=== PATIENT | male | born 1960 | race American Indian/Alaskan Native ===

== ENCOUNTER 2019-01-05 22:38 | Inpatient (IN) | payer BC ==
[2019-01-05] MEDS ORDERED: ASPIRIN 325 MG TAB PO ONE (23:11)
--- NOTE | 2019-01-05 23:41 | Emergency Department Report ---
ED Chest Pain HPI - General Chief Complaint: Chest Pain Stated Complaint: CP Time Seen by Provider: 01/05/19 23:34 Source: patient, EMS Mode of arrival: Stretcher Limitations: No Limitations - History of Present Illness Initial Comments: Patient is 58 years old male with history of hypertension, diabetes and congestive heart failure with ejection fracture off a percent. Patient presented to the ER via EMS complaining of left-sided chest pain for the last 3 days associated with shortness of breath. Patient stated that he is unable to sleep at night because of the shortness of breath. He also stated that if he walked for a very short distance and he will got significant shortness of breath. Patient denied any fever or chills. MD Complaint: chest pain -: days(s) (3) Pain Location: substernal Severity scale (0 -10): 0 - Related Data Allergies Allergy/AdvReac Type Severity Reaction Status Date / Time No Known Allergies Allergy Unverified 01/05/19 23:11 Heart Score - HEART Score History: Moderately suspicious EKG: Non-specific Age: 45-65 Risk factors: > 3 risk factors or hx of atherosclerotic disease Troponin: < normal limit HEART Score: 5 - Critical Actions Critical Actions: 4-6 pts:12-16.6% risk of adverse cardiac event. Should be admitted ED Review of Systems ROS: Stated complaint: CP Other details as noted in HPI Comment: All other systems reviewed and negative Constitutional: denies: chills, fever Respiratory: cough, orthopnea, shortness of breath, SOB with exertion, SOB at rest. denies: wheezing Cardiovascular: chest pain, palpitations Gastrointestinal: denies: abdominal pain, nausea, vomiting Musculoskeletal: denies: back pain Neurological: denies: headache, weakness, numbness, paresthesias, confusion ED Past Medical Hx - Past Medical History Previous Medical History?: Yes Hx Hypertension: Yes Hx Congestive Heart Failure: Yes Hx Diabetes: Yes - Surgical History Past Surgical History?: No - Social History Smoking Status: Former Smoker Substance Use Type: Prescribed ED Physical Exam - General Limitations: No Limitations General appearance: in distress (moderate respiratory distress) - Head Head exam: Present: atraumatic, normocephalic, normal inspection - Eye Eye exam: Present: normal appearance, PERRL - ENT ENT exam: Present: normal exam, normal orophraynx, mucous membranes moist - Neck Neck exam: Present: normal inspection, full ROM. Absent: tenderness, meningismus, lymphadenopathy, thyromegaly - Respiratory Respiratory exam: Present: rales - Cardiovascular Cardiovascular Exam: Present: tachycardia - GI/Abdominal GI/Abdominal exam: Present: soft, normal bowel sounds. Absent: distended, tenderness, guarding, rebound, rigid - Extremities Exam Extremities exam: Present: normal inspection, pedal edema - Back Exam Back exam: Present: normal inspection, full ROM. Absent: CVA tenderness (R), CVA tenderness (L), muscle spasm, paraspinal tenderness, vertebral tenderness - Neurological Exam Neurological exam: Present: alert, oriented X3, CN II-XII intact. Absent: motor sensory deficit - Psychiatric Psychiatric exam: Present: normal mood - Skin Skin exam: Present: warm ED Course Vital Signs 01/05/19 01/06/19 23:00 01:00 Temperature 99.5 F Pulse Rate 112 H 105 H Respiratory 16 26 H Rate Blood Pressure 103/57 Blood Pressure 101/61 [Left] O2 Sat by Pulse 96 89 Oximetry ED Medical Decision Making - Lab Data Result diagrams: 01/05/19 23:32 01/05/19 23:32 - EKG Data -: EKG Interpreted by Ar EKG shows normal: sinus rhythm Rate: tachycardia - EKG Data Interpretation: no acute changes - Radiology Data Radiology results: report reviewed - Medical Decision Making Patient is 58 years old male with history of hypertension, diabetes and congestive heart failure with ejection fracture off a percent. Patient presented to the ER via EMS complaining of left-sided chest pain for the last 3 days associated with shortness of breath. Patient stated that he is unable to sleep at night because of the shortness of breath. He also stated that if he walked for a very short distance and he will got significant shortness of breath. Patient denied any fever or chills. Labs reviewed and showed elevated white blood cells. Chest x-ray show right lower lobe infiltrate consistent with pneumonia. Patient received Zosyn. I discussed the patient is Dr. Milton, he agreed to admit the patient to medical service for further management. Critical care attestation.: If time is entered above; I have spent that time in minutes in the direct care o f this critically ill patient, excluding procedure time. ED Disposition Clinical Impression: Pneumonia, Chest pain Disposition: OP ADMIT IP TO THIS HOSP Is pt being admited?: Yes Condition: Stable Instructions: Bacterial Pneumonia (ED), Chest Pain (ED)
--- NOTE | 2019-01-05 23:43 | XRay Report ---
CHEST 1 VIEW INDICATION / CLINICAL INFORMATION: Chest Pain. COMPARISON: None available. FINDINGS: SUPPORT DEVICES: None. HEART / MEDIASTINUM: Mildly enlarged LUNGS / PLEURA: Right lower lung airspace pneumonia Signer Name: Hussain Chapman MD Signed: 01/05/2019 11:39 PM Workstation Name: [id number]
[2019-01-05] MEDS ORDERED: ONDANSETRON 4 MG/2 ML INJ ONE (23:45)
[2019-01-05] MEDS ORDERED: ONDANSETRON 4 MG/2 ML INJ IV ONE (23:45)
[2019-01-05 23:55] LABS: Basophils # (Auto) 0.1 K/mm3 (0.0-0.1); Basophils % (Auto) 0.6 % (0.0-1.8); Eosinophils % (Auto) 0.1 % (0.0-4.3); Hematocrit 34.5 % (35.5-45.6); Hemoglobin 11.3 gm/dl (11.8-15.2); Lymphocytes # (Auto) 1.1 K/mm3 (1.2-5.4); Lymphocytes % (Auto) 8.1 % (13.4-35.0); Mean Corpuscular HGB Conc 33 % (32-34); Mean Corpuscular Volume 78 fl (84-94); Monocytes # (Auto) 1.7 K/mm3 (0.0-0.8); Platelet Count 321 K/mm3 (140-440); Red Blood Count 4.45 M/mm3 (3.65-5.03); Red Cell Distribution Width 16.3 % (13.2-15.2)
[2019-01-06 00:45] LABS: BUN/Creatinine Ratio 24; Blood Urea Nitrogen 24 mg/dL (9-20); Calcium 8.8 mg/dL (8.4-10.2); Hemolysis Index 2
[2019-01-06] MEDS ORDERED: PIPERACILLIN/TAZOBACTAM 3.375 3.375 GM/50 ML BAG IV ONE (02:00)
[2019-01-06] MEDS ORDERED: ONDANSETRON 4 MG/2 ML INJ IV PRN (02:57)
[2019-01-06] MEDS ORDERED: MORPHINE 2 MG/1 ML INJ IV PRN (03:00)
[2019-01-06] MEDS ORDERED: LEVALBUTEROL 0.63 MG/3 ML NEBU IH PRN (03:06)
[2019-01-06] MEDS ORDERED: DEXTROSE 50% IN WATER (25GM) 50 ML SYRINGE IV PRN (03:08)
[2019-01-06] MEDS: HEPARIN 5,000 UNIT/1 ML VIAL SUB-Q SCH ×3 (03:35→22:05)
[2019-01-06] MEDS: INSULIN REGULAR, HUMAN 100 UNITS/1 ML SUB-Q SCH ×5 (04:08→20:07)
[2019-01-06] MEDS ORDERED: MORPHINE 2 MG/1 ML INJ ONE (04:24)
--- NOTE | 2019-01-06 04:41 | History and Physical Report ---
CHIEF COMPLAINT: Chest pain. OTHER COMPLAINT: Includes shortness of breath. HISTORY OF PRESENT ILLNESS: The patient is a 58-year-old male who said he has been having left-sided chest pain going on for about 3 days associated with shortness of breath, but there was no history of nausea or vomiting and no history of diaphoresis. Pain does not radiate. The patient said that whenever he walks for short distance, he becomes so short of breath and tired and has no history of fever or chills and no history of cough. PAST MEDICAL HISTORY: Pertinent for hypertension, congestive heart failure, diabetes mellitus. PAST SURGICAL HISTORY: Unremarkable. FAMILY HISTORY: Noncontributory. SOCIAL HISTORY: The patient is a former cigarette smoker. Does not smoke currently, does not drink alcohol and does not use illicit drugs. MEDICATIONS: The patient's home medication includes metformin 500 mg by mouth twice daily, torsemide or Demadex 20 mg by mouth daily, carvedilol 12.5 mg by mouth daily, fenofibrate 48 mg by mouth daily, fluticasone proprionate or Flovent Diskus 50 mcg by inhalation daily. The patient is also on lisinopril 2.5 mg by mouth daily, loratadine 10 mg by mouth daily, potassium bicarbonate 25 mEq by mouth daily. ALLERGIES: There are no known drug allergies. REVIEW OF SYSTEMS: CONSTITUTIONAL: There is no fever, no chills, no diaphoresis. HEENT: There is no headache or sore throat. CARDIOVASCULAR SYSTEM: Chest pain is present. No orthopnea. RESPIRATORY SYSTEM: Shortness of breath is present and also congestion is present. GASTROINTESTINAL SYSTEM: There is nausea. No vomiting, no abdominal pain, diarrhea or constipation. NEUROLOGICAL SYSTEM: There is no numbness, no dizziness, no altered mental status. MUSCULOSKELETAL SYSTEM: There is no joint pain but there is joint swelling in the ankles. DERMATOLOGICAL SYSTEM: There is no skin rash or itching. GENITOURINARY SYSTEM: There is no dysuria, hematuria, or flank pain. Rest of system review is normal. PHYSICAL EXAMINATION: GENERAL: At the time of exam, the patient was found to be alert, oriented x 3 and in mild distress due to shortness of breath. VITAL SIGNS: At the initial time of presentation showed temperature of 99.5 degrees Fahrenheit, pulse of 112, respirations 16, blood pressure 101/61, O2 sat of 96% on room air. HEENT: Showed pupils to be equal, round, reactive to light and accommodating. Extraocular muscles are intact. NECK: Supple with no JVD or carotid bruit. CARDIOVASCULAR SYSTEM: Showed normal first and second heart sounds with no gallops or murmurs. RESPIRATORY SYSTEM: Showed good air entry on both sides of the lungs with bibasilar rales and scattered crackles in the right lower lung field area. GASTROINTESTINAL SYSTEM: Show abdomen to be full, soft, nontender with no organomegaly or rigidity. NEUROLOGIC: Shows no focal deficit. MUSCULOSKELETAL: Shows swelling in the ankles and feet. DERMATOLOGICAL SYSTEM: Show no skin rash. GENITOURINARY SYSTEM: Show no costovertebral angle tenderness. PERTINENT LABORATORY AND IMAGING STUDIES: The patient had chest x-ray done. Chest x-ray shows right lower lung airspace pneumonia. Lab results, the patient's CBC show elevated white count of 13,200 with slightly low hemoglobin of 11,300 and low hematocrit of 34.5 and low MCV of 78 with CBC differential showing elevated monocyte count of 13% and high segmented neutrophil count of 78.2. The patient's coagulation studies show high D-dimer level of 947.7 with the patient's chemistry showing low chloride level of 97.3 with elevated BUN of 24 and high brain natriuretic peptide level of 6595 with unremarkable troponin level. DIAGNOSES: 1. Right lower lobe pneumonia. 2. Chest pain. 3. Congestive heart failure exacerbation. PLAN OF CARE: 1. The patient will be admitted to telemetry as inpatient. 2. The patient will have serial cardiac enzymes involving troponin, total CK, and CK-MB checked every 6 hours x 2 levels. 3. The patient will be n.p.o. and will have Lexiscan stress test done this morning. 4. The patient will have 2D echo, so we will have complete 2D echo done this morning to evaluate the patient's left ventricular function. 5. The patient will have Cardiology consult with Dr. Delroy Becerra because of chest pain and congestive heart failure exacerbation. 6. The patient will be on Accu-Chek q.4 hours followed by low-dose sliding scale using regular insulin coverage. 7. The patient will be on aspirin 325 mg by mouth daily and will be on Tylenol 650 mg by mouth every 4 hours for fever and headache. 8. The patient will be on daily aspirin 325 mg by mouth. 9. The patient will be on heparin 5000 units subcutaneous q.12 hours for DVT prophylaxis. 10. The patient will be on Xopenex nebulizer 0.63 mg every 6 hours as needed for shortness of breath. 11. The patient will be on nitro paste half inch to anterior chest wall q.i.d. 12. The patient will be on Nitrostat 0.4 mg every 5 minutes as needed for breakthrough chest pain. 13. The patient will be on IV morphine 2 mg every 3 hours as needed for pain and IV Zofran 4 mg every 8 hours as needed for nausea and vomiting. 14. The patient will be on IV Zosyn 3.375 grams q. 8 hours for treatment of pneumonia. 15. The patient will be on oxygen by nasal cannula at 2 liters per minute. 16. The patient will be on his home medication as shown in the medication reconciliation section. JOB# [id number] OCN/NTS
[2019-01-06] MEDS ORDERED: LORazepam 2 MG/ML VIAL IV ONE (04:51)
[2019-01-06] MEDS: NITROGLYCERIN 2% OINT 1 GM TP SCH ×4 (05:23→19:35)
[2019-01-06] MEDS: PIPERACILLIN/TAZOBACTAM 3.375 3.375 GM/50 ML BAG IV SCH ×2 (05:24→15:30)
[2019-01-06] MEDS ORDERED: REGADENOSON 0.4 MG/5 ML INJ IV ONE ×2 (08:16→08:24)
[2019-01-06 08:50] LABS: Creatine Kinase MB < 1.0 ng/mL (0.0-4.0)
[2019-01-06] MEDS ORDERED: FLUTICASONE PROPIONATE 50 MCG IH SCH (10:00)
[2019-01-06] MEDS ORDERED: FUROSEMIDE 40 MG/4 ML INJ IV SCH (10:00)
--- NOTE | 2019-01-06 10:24 | Event Note ---
Date: 01/06/19 This is a follow-up from an admission earlier this morning. Patient seen and examined. We will continue the plan as outlined in H&P including IV antibiotics and follow-up echocardiogram and stress tests. Time = 25 minutes with greater than 50% spent in coordination of care and counseling.
--- NOTE | 2019-01-06 14:13 | Event Note ---
Date: 01/06/19 Detailed cardiology consultation dictated. S/p lexiscan MPI stress test this AM which showed mild inferolateral ischemia, EF 17%. Await echo. Cont lopressor, lisinopril, increase IV lasix to BID dosing. Consider coronary angiography for definitive diagnosis once medically stabilized. En LAUREANO NP / DR. CEDRIC TOMAS
--- NOTE | 2019-01-06 15:30 | Treadmill Report ---
NUCLEAR STRESS REPORT The patient was brought to the Cardiology lab and a nuclear stress test is performed with the administration of Lexiscan initially. The patient tolerated Lexiscan administration well. No significant ischemic changes or complex arrhythmias were noted. Post-stress nuclear images reveal markedly dilated left ventricle with severe global hypokinesis and thinning of the left ventricle. Ejection fraction is calculated to be 17%. Mild inferolateral reversibility is present. IMPRESSION: 1. Dilated left ventricle with severe global systolic dysfunction with a calculated ejection fraction of 17%. 2. Mild inferolateral reversibility to suggest ischemia. 3. Suggest clinical correlation. JOB# [id number] MARQUIS/NTS
[2019-01-06] MEDS: LISINOPRIL 5 MG TAB PO SCH (15:37)
[2019-01-06] MEDS: FENOFIBRATE 48 MG TAB PO SCH (15:37)
[2019-01-06] MEDS: K-LYTE 25 MEQ TABLET EFF PO SCH (15:37)
[2019-01-06] MEDS: CARVEDILOL 12.5 MG TAB PO SCH (15:37)
[2019-01-06] MEDS: LORATADINE 10 MG TAB PO SCH (15:38)
[2019-01-06] MEDS: ASPIRIN 325 MG TAB PO SCH (15:38)
[2019-01-06] MEDS: FUROSEMIDE 40 MG/4 ML INJ IV SCH (19:39)
--- NOTE | 2019-01-06 23:25 | Consultation ---
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 The pains are described as sharp pains and he also complains about exertional dyspnea. The patient is known to have had hypertension for about 6-7 years. He has been having intermittent chest pains for about 6-7 years, but mostly it is a sharp pain and sometimes related to activity. He apparently had a cardiac catheterization about 8 years ago and was normal. Last stress test was 4 years ago and was apparently negative. He is also complaining about fatigue and his effort tolerance is markedly reduced. Walking very short distance gives some shortness of breath. No prior myocardial infarction. Diagnosed to have hypertension for about 5-6 years ago, diabetes and hyperlipidemia for about 2-3 years. Questionable history of congestive heart failure. REVIEW OF SYSTEMS: HEAD, EYES, EARS, NOSE, THROAT: No symptoms. ENDOCRINE: History of diabetes. GASTROINTESTINAL: No abdominal pain, nausea or vomiting. Bowel habits have been regular. GENITOURINARY: No symptoms. LOCOMOTOR: No symptoms. PERSONAL HISTORY: Nonsmoker, nonalcoholic. PHYSICAL EXAMINATION: GENERAL: Adult gentleman, well built, well nourished, in no acute distress at this time. VITAL SIGNS: Blood pressure 103/70, pulse 100, respirations 18. HEAD, EYES, EARS, NOSE AND THROAT: Unremarkable. NECK: Supple. No thyromegaly. Both carotids are palpable and equal. Neck veins are flat. CHEST: Symmetrical. LUNGS: Essentially clear. HEART: S1 and S2 are heard well. No S3. No significant murmurs are appreciated. ABDOMEN: Soft, nontender, no hepatosplenomegaly. EXTREMITIES: No significant edema or calf tenderness. LABORATORY DATA: EKG shows sinus rhythm, left axis deviation, intraventricular conduction delay, possible septal infarct. Rhythm strips show a short run of ventricular tachycardia. LABORATORY DATA: WBC 13.3, hemoglobin 11.3, hematocrit 34.5. Sodium 137, potassium 4.4, BUN 24, creatinine 1, blood sugar 154. Troponin x 3 negative. BNP 6595. IMPRESSION: 1. Chest pain, etiology uncertain, rule out ischemic etiology. 2. Short run of nonsustained ventricular tachycardia. 3. Hypertension. 4. Diabetes. 5. History of congestive heart failure. 6. Leukocytosis. The patient is seen for cardiac evaluation. Chest pain itself is atypical; however, we will review the nuclear stress test and echocardiogram and the patient will be monitored closely. Thank you for allowing me to participate in the care of this gentleman. JOB# [id number] KB/NTS
[2019-01-07] MEDS: INSULIN REGULAR, HUMAN 100 UNITS/1 ML SUB-Q SCH ×7 (00:10→22:18)
[2019-01-07] MEDS: FUROSEMIDE 40 MG/4 ML INJ IV SCH ×3 (06:18→19:11)
[2019-01-07] MEDS: NITROGLYCERIN 2% OINT 1 GM TP SCH ×4 (06:19→19:12)
[2019-01-07] MEDS: PIPERACILLIN/TAZOBACTAM 3.375 3.375 GM/50 ML BAG IV SCH ×3 (06:19→22:19)
[2019-01-07 07:41] LABS: BUN/Creatinine Ratio 26; Blood Urea Nitrogen 23 mg/dL (9-20); Calcium 8.9 mg/dL (8.4-10.2); Hemolysis Index 4
[2019-01-07] MEDS ORDERED: BUDESONIDE 0.25 MG/2 ML NEBU IH SCH (08:00)
[2019-01-07] MEDS: ASPIRIN 325 MG TAB PO SCH (10:16)
[2019-01-07] MEDS: K-LYTE 25 MEQ TABLET EFF PO SCH (10:16)
[2019-01-07] MEDS: LORATADINE 10 MG TAB PO SCH (10:16)
[2019-01-07] MEDS: FENOFIBRATE 48 MG TAB PO SCH (10:16)
[2019-01-07] MEDS: LISINOPRIL 5 MG TAB PO SCH (10:18)
[2019-01-07] MEDS: CARVEDILOL 12.5 MG TAB PO SCH (10:18)
[2019-01-07] MEDS: HEPARIN 5,000 UNIT/1 ML VIAL SUB-Q SCH ×2 (10:19→22:18)
--- NOTE | 2019-01-07 12:38 | Progress Note ---
Assessment and Plan Assessment and plan: Chest pain Stress test abnormal For cardiac cath when stable Acute on chronic systolic CHF lasix iv Beta blockers cardiology following Diabetes mellitus type 2 Accucheck qac and hs NSVT Full code status Hospitalist Physical - Physical exam Narrative exam: Gen: Not in acute distress, lying in bed,obese HEENT: Normocephalic, atraumatic Neck: supple, no JVD Heart: S1 and S2 reg, no murmurs, rubs or gallop Lungs: Bilateral basal crackles, no rhonchi, no wheeze Abd: soft, non tender, non distended, normal BS, Ext: No edema, no clubbing, no cyanosis Neuro: Awake, alert, oriented X 3, no focal neurological signs - Constitutional Vitals: Temp Pulse Resp BP Pulse Ox 98.3 F 97 H 19 91/61 94 01/07/19 09:08 01/07/19 12:30 01/07/19 10:00 01/07/19 12:30 01/07/19 12:30 Results - Labs CBC & Chem 7: 01/05/19 23:32 01/08/19 05:20 Labs: Laboratory Last Values WBC 13.2 K/mm3 (4.5-11.0) H 01/05/19 23:32 RBC 4.45 M/mm3 (3.65-5.03) 01/05/19 23:32 Hgb 11.3 gm/dl (11.8-15.2) L 01/05/19 23:32 Hct 34.5 % (35.5-45.6) L 01/05/19 23:32 MCV 78 fl (84-94) L 01/05/19 23:32 MCH 26 pg (28-32) L 01/05/19 23:32 MCHC 33 % (32-34) 01/05/19 23:32 RDW 16.3 % (13.2-15.2) H 01/05/19 23:32 Plt Count 321 K/mm3 (140-440) 01/05/19 23:32 Lymph % (Auto) 8.1 % (13.4-35.0) L 01/05/19 23:32 [place] % (Auto) 13.0 % (0.0-7.3) H 01/05/19 23:32 Eos % (Auto) 0.1 % (0.0-4.3) 01/05/19 23:32 Baso % (Auto) 0.6 % (0.0-1.8) 01/05/19 23:32 Lymph # 1.1 K/mm3 (1.2-5.4) L 01/05/19 23:32 [place] # 1.7 K/mm3 (0.0-0.8) H 01/05/19 23:32 Eos # 0.0 K/mm3 (0.0-0.4) 01/05/19 23:32 Baso # 0.1 K/mm3 (0.0-0.1) 01/05/19 23:32 Seg Neutrophils % 78.2 % (40.0-70.0) H 01/05/19 23:32 Seg Neutrophils # 10.4 K/mm3 (1.8-7.7) H 01/05/19 23:32 D-Dimer 947.79 ng/mlDDU (0-234) H 01/05/19 23:32 Sodium 137 mmol/L (137-145) 01/07/19 06:49 Potassium 4.4 mmol/L (3.6-5.0) 01/07/19 06:49 Chloride 96.3 mmol/L (98-107) L 01/07/19 06:49 Carbon Dioxide 24 mmol/L (22-30) 01/07/19 06:49 Anion Gap 21 mmol/L 01/07/19 06:49 BUN 23 mg/dL (9-20) H 01/07/19 06:49 Creatinine 0.9 mg/dL (0.8-1.5) 01/07/19 06:49 Estimated GFR > 60 ml/min 01/07/19 06:49 BUN/Creatinine Ratio 26 % 01/07/19 06:49 Glucose 141 mg/dL (75-100) H 01/07/19 06:49 POC Glucose 154 (70-105) H 01/07/19 09:20 Calcium 8.9 mg/dL (8.4-10.2) 01/07/19 06:49 Total Creatine Kinase 239 units/L (55-170) H 01/06/19 15:37 CK-MB (CK-2) 1.0 ng/mL (0.0-4.0) 01/06/19 15:37 CK-MB (CK-2) Rel Index 0.4 (0-4) 01/06/19 15:37 Troponin T 0.015 ng/mL (0.00-0.029) 01/06/19 15:37 NT-Pro-B Natriuret Pep 6595 pg/mL (0-900) H 01/05/19 23:32 Active Medications - Current Medications Current Medications: Generic Name Dose Route Start Last Admin Trade Name Freq PRN Reason Stop Dose Admin Acetaminophen 650 mg 01/06/19 02:56 Tylenol PO Q4H PRN Fever >101 Aspirin 325 mg 01/06/19 10:00 01/07/19 10:16 Aspirin PO 325 mg QDAY SHERITA Administration Budesonide 0.25 mg 01/07/19 08:00 01/07/19 09:15 Pulmicort IH 0.25 mg Q12HRT SHERITA Administration Carvedilol 12.5 mg 01/06/19 10:00 01/07/19 10:18 Coreg PO Not Given DAILY SHERITA Dextrose 0 ml 01/06/19 03:08 D50w (25gm) Syringe IV Q30MIN PRN Hypoglycemia Fenofibrate 48 mg 01/06/19 10:00 01/07/19 10:16 Tricor PO 48 mg DAILY SHERITA Administration Furosemide 40 mg 01/06/19 18:00 01/07/19 06:18 Lasix IV 40 mg 0600,1800 SHERITA Administration Heparin Sodium (Porcine) 5,000 unit 01/06/19 03:00 01/07/19 10:19 Heparin SUB-Q 5,000 unit Q12HR SHERITA Administration Piperacillin Sod/Tazobactam Sod 3.375 gm in 50 mls @ 100 mls/hr 01/07/19 06:00 01/07/19 06:19 Zosyn/Ns 3.375gm/50ml IV 01/10/19 05:59 100 mls/hr Q8HR SHERITA Administration Insulin Human Regular 0 units 01/06/19 04:00 01/07/19 08:00 Humulin R SUB-Q Not Given Q4H SHERITA Protocol Levalbuterol HCl 0.63 mg 01/06/19 03:06 01/07/19 09:14 Xopenex IH 0.63 mg Q6HRT PRN Administration Shortness Of Breath Lisinopril 2.5 mg 01/06/19 10:00 01/07/19 10:18 Zestril PO Not Given DAILY SHERITA Loratadine 10 mg 01/06/19 10:00 01/07/19 10:16 Claritin PO 10 mg DAILY SHERITA Administration Morphine Sulfate 2 mg 01/06/19 03:00 Morphine IV Q3H PRN Pain, Moderate (4-6) Nitroglycerin 0.5 inch 01/06/19 06:00 01/07/19 10:18 Nitro-Bid 2% TP Not Given QIDNTG [facility] Protocol Ondansetron HCl 4 mg 01/06/19 02:57 Zofran IV Q8H PRN Nausea And Vomiting Potassium Bicarbonate 20 meq 01/06/19 10:00 01/07/19 10:16 Klor-Con PO 20 meq QDAY SHERITA Administration
--- NOTE | 2019-01-07 14:55 | Progress Note ---
Assessment and Plan S/p lexiscan MPI stress test yesterday which showed mild inferolateral ischemia, EF 17%. Echo reviewed - EF 10-15%, LV, LA, RV severely dilated, RV systolic function severely reduced, mild to mod MR and TR, pulm HTN with RVSP 79mmHg. Cont GDMT and IV diuretics. Consider coronary angiography for definitive diagnosis once medically stabilized - likely or Sunday. Pt reports h/o cardiomyopathy and HF for approx the past 6-8 years. Cardiac defibrillator recommended (LifeVest and/or AICD) in setting of severe CMP and NSVT. He states that Dr. Reeder has also made this recommendation and he has chronically declined LifeVest and/or AICD. The patient has been seen in conjunction with Dr. CEDRIC Becerra who agrees with the assessment and plan of care. - Patient Problems (1) Acute HFrEF (heart failure with reduced ejection fraction) Current Visit: Yes Status: Acute (2) Dilated cardiomyopathy Current Visit: Yes Status: Chronic (3) HTN (hypertension) Current Visit: Yes Status: Chronic (4) Diabetes Current Visit: Yes Status: Chronic (5) NSVT (nonsustained ventricular tachycardia) Current Visit: Yes Status: Acute (6) History of ETOH abuse Current Visit: Yes Status: Chronic (7) Abnormal stress test Current Visit: Yes Status: Acute (8) Pulmonary HTN Current Visit: Yes Status: Chronic Subjective Date of service: 01/07/19 Principal diagnosis: HF Interval history: pt sitting up in chair, states SOB improving, BLE persists. in SR on tele. Objective Last Vital Signs Temp 98.3 F 01/07/19 09:08 Pulse 97 H 01/07/19 12:30 Resp 19 01/07/19 10:00 BP 91/61 01/07/19 12:30 Pulse Ox 94 01/07/19 12:30 - Physical Examination General: No Apparent Distress HEENT: Positive: PERRL, Normocephaly, Mucus Membranes Moist Neck: Positive: neck supple, trachea midline Cardiac: Positive: Reg Rate and Rhythm, S1/S2 Lungs: Positive: Rales (bibasilar) Neuro: Positive: Grossly Intact Abdomen: Negative: Tender Skin: Negative: Rash Musculoskeletal: No Pain Extremities: Present: +3 Edema (BLE) - Labs and Meds Cardiac Enzymes 01/06/19 Range/Units 15:37 CK-MB (CK-2) 1.0 (0.0-4.0) ng/mL Comprehensive Metabolic Panel 01/07/19 Range/Units 06:49 Sodium 137 (137-145) mmol/L Potassium 4.4 (3.6-5.0) mmol/L Chloride 96.3 L (98-107) mmol/L Carbon Dioxide 24 (22-30) mmol/L BUN 23 H (9-20) mg/dL Creatinine 0.9 (0.8-1.5) mg/dL Glucose 141 H (75-100) mg/dL Calcium 8.9 (8.4-10.2) mg/dL - Imaging and Cardiology EKG: report reviewed, image reviewed Pharmacologic stress test: report reviewed Echo: report reviewed - Telemetry EKG Rhythm: Sinus Rhythm
[2019-01-07] MEDS: BUDESONIDE 0.25 MG/2 ML NEBU IH SCH (20:08)
[2019-01-07] MEDS ORDERED: SODIUM CHLORIDE 0.9% 500 ML 500 ML IV ONE (20:22)
[2019-01-07] MEDS ORDERED: CARVEDILOL 6.25 MG TAB PO SCH (22:00)
[2019-01-08] MEDS: BENZONATATE 100 MG CAP PO SCH ×4 (00:45→21:48)
[2019-01-08] MEDS: FUROSEMIDE 40 MG/4 ML INJ IV SCH (05:24)
[2019-01-08] MEDS: PIPERACILLIN/TAZOBACTAM 3.375 3.375 GM/50 ML BAG IV SCH ×3 (05:25→21:52)
[2019-01-08] MEDS: NITROGLYCERIN 2% OINT 1 GM TP SCH ×3 (05:26→14:13)
[2019-01-08 05:57] LABS: BUN/Creatinine Ratio 22; Blood Urea Nitrogen 20 mg/dL (9-20); Hemolysis Index 0
[2019-01-08] MEDS: INSULIN REGULAR, HUMAN 100 UNITS/1 ML SUB-Q SCH ×4 (07:30→22:10)
[2019-01-08] MEDS: BUDESONIDE 0.25 MG/2 ML NEBU IH SCH ×2 (08:25→20:42)
[2019-01-08] MEDS: LORATADINE 10 MG TAB PO SCH (10:23)
[2019-01-08] MEDS: ASPIRIN 325 MG TAB PO SCH (10:24)
[2019-01-08] MEDS: FENOFIBRATE 48 MG TAB PO SCH (10:24)
[2019-01-08] MEDS: LISINOPRIL 5 MG TAB PO SCH (10:25)
[2019-01-08] MEDS: HEPARIN 5,000 UNIT/1 ML VIAL SUB-Q SCH ×2 (10:30→21:48)
[2019-01-08] MEDS ORDERED: K-LYTE 25 MEQ TABLET EFF PO SCH (11:30)
[2019-01-08] MEDS: CARVEDILOL 3.125 MG TAB PO SCH ×2 (12:26→21:52)
[2019-01-08] MEDS: K-LYTE 25 MEQ TABLET EFF PO SCH (12:34)
--- NOTE | 2019-01-08 15:10 | Progress Note ---
Assessment and Plan Cont GDMT as tolerated. Pt reports low UOP and BLE edema persists, will convert IV lasix to IV bumex BID. F/u BMP in AM. Consider coronary angiography for definitive diagnosis once medically stabilized - likely Sunday. Pt reports h/o cardiomyopathy and HF for approx the past 6-8 years. Cardiac defibrillator recommended (LifeVest and/or AICD) in setting of severe CMP and NSVT. He states that Dr. Reeder has also made this recommendation and he has chronically declined LifeVest and/or AICD. The patient has been seen in conjunction with Dr. CEDRIC Becerra who agrees with the assessment and plan of care. - Patient Problems (1) Acute HFrEF (heart failure with reduced ejection fraction) Current Visit: Yes Status: Acute (2) Dilated cardiomyopathy Current Visit: Yes Status: Chronic (3) HTN (hypertension) Current Visit: Yes Status: Chronic (4) Diabetes Current Visit: Yes Status: Chronic (5) NSVT (nonsustained ventricular tachycardia) Current Visit: Yes Status: Acute (6) History of ETOH abuse Current Visit: Yes Status: Chronic (7) Abnormal stress test Current Visit: Yes Status: Acute (8) Pulmonary HTN Current Visit: Yes Status: Chronic Subjective Date of service: 01/08/19 Principal diagnosis: HF Interval history: pt sitting up in chair, states SOB improving, BLE persists. in SR on tele with 16 beat run NSVT noted overnight, pt asymptomatic. Objective Last Vital Signs Temp 98.0 F 01/08/19 03:57 Pulse 98 H 01/08/19 14:13 Resp 20 01/08/19 10:18 BP 92/59 01/08/19 14:13 Pulse Ox 96 01/08/19 10:18 - Physical Examination General: No Apparent Distress HEENT: Positive: PERRL, Normocephaly, Mucus Membranes Moist Neck: Positive: neck supple, trachea midline Cardiac: Positive: Reg Rate and Rhythm, S1/S2 Lungs: Positive: Decreased Breath Sounds Neuro: Positive: Grossly Intact Abdomen: Negative: Tender Skin: Negative: Rash Musculoskeletal: No Pain Extremities: Present: +3 Edema (BLE) - Labs and Meds Comprehensive Metabolic Panel 01/08/19 Range/Units 05:20 Sodium 140 (137-145) mmol/L Potassium 4.5 (3.6-5.0) mmol/L Chloride 98.7 (98-107) mmol/L Carbon Dioxide 29 (22-30) mmol/L BUN 20 (9-20) mg/dL Creatinine 0.9 (0.8-1.5) mg/dL Glucose 121 H (75-100) mg/dL Calcium 9.0 (8.4-10.2) mg/dL - Imaging and Cardiology EKG: report reviewed, image reviewed Echo: report reviewed
--- NOTE | 2019-01-08 21:24 | XRay Report ---
CHEST 1 VIEW INDICATION: pneumonia versus CHF. COMPARISON: 01/05/2019 FINDINGS: SUPPORT DEVICES: None. HEART / MEDIASTINUM: Mild cardiac enlargement. LUNGS / PLEURA: Airspace changes present both lower lobes No pneumothorax. ADDITIONAL FINDINGS: IMPRESSION: 1. Airspace changes both lower lobes right greater than left, pneumonia is a concern Signer Name: Jaime Bashir MD Signed: 01/08/2019 9:19 PM Workstation Name: [id number]
[2019-01-08] MEDS: BUMETANIDE 1 MG/4 ML INJ IV SCH (21:48)
--- NOTE | 2019-01-08 22:34 | Progress Note ---
Assessment and Plan Assessment and plan: Chest pain Stress test abnormal For cardiac cath when stable Acute on chronic systolic CHF Started on Bumex iv Coreg cardiology following Diabetes mellitus type 2 Accucheck qac and hs NSVT Full code status History Interval history: No more chest pain less shortness of breath legs still swollen Hospitalist Physical - Physical exam Narrative exam: Gen: Not in acute distress, lying in bed,obese HEENT: Normocephalic, atraumatic Neck: supple, no JVD Heart: S1 and S2 reg, no murmurs, rubs or gallop Lungs: Bilateral basal crackles, no rhonchi, no wheeze Abd: soft, non tender, non distended, normal BS, Ext: Bilat lower ext edema, no clubbing, no cyanosis Neuro: Awake, alert, oriented X 3, no focal neurological signs - Constitutional Vitals: Temp Pulse Resp BP Pulse Ox 98.1 F 93 H 18 90/54 96 01/08/19 16:31 01/08/19 21:52 01/08/19 16:31 01/08/19 21:52 01/08/19 12:29 Results - Labs CBC & Chem 7: 01/05/19 23:32 01/08/19 05:20 Labs: Laboratory Last Values WBC 13.2 K/mm3 (4.5-11.0) H 01/05/19 23:32 RBC 4.45 M/mm3 (3.65-5.03) 01/05/19 23:32 Hgb 11.3 gm/dl (11.8-15.2) L 01/05/19 23:32 Hct 34.5 % (35.5-45.6) L 01/05/19 23:32 MCV 78 fl (84-94) L 01/05/19 23:32 MCH 26 pg (28-32) L 01/05/19 23:32 MCHC 33 % (32-34) 01/05/19 23:32 RDW 16.3 % (13.2-15.2) H 01/05/19 23:32 Plt Count 321 K/mm3 (140-440) 01/05/19 23:32 Lymph % (Auto) 8.1 % (13.4-35.0) L 01/05/19 23:32 [place] % (Auto) 13.0 % (0.0-7.3) H 01/05/19 23:32 Eos % (Auto) 0.1 % (0.0-4.3) 01/05/19 23:32 Baso % (Auto) 0.6 % (0.0-1.8) 01/05/19 23:32 Lymph # 1.1 K/mm3 (1.2-5.4) L 01/05/19 23:32 [place] # 1.7 K/mm3 (0.0-0.8) H 01/05/19 23:32 Eos # 0.0 K/mm3 (0.0-0.4) 01/05/19 23:32 Baso # 0.1 K/mm3 (0.0-0.1) 01/05/19 23:32 Seg Neutrophils % 78.2 % (40.0-70.0) H 01/05/19 23:32 Seg Neutrophils # 10.4 K/mm3 (1.8-7.7) H 01/05/19 23:32 D-Dimer 947.79 ng/mlDDU (0-234) H 01/05/19 23:32 Sodium 140 mmol/L (137-145) 01/08/19 05:20 Potassium 4.5 mmol/L (3.6-5.0) 01/08/19 05:20 Chloride 98.7 mmol/L (98-107) 01/08/19 05:20 Carbon Dioxide 29 mmol/L (22-30) 01/08/19 05:20 Anion Gap 17 mmol/L 01/08/19 05:20 BUN 20 mg/dL (9-20) 01/08/19 05:20 Creatinine 0.9 mg/dL (0.8-1.5) 01/08/19 05:20 Estimated GFR > 60 ml/min 01/08/19 05:20 BUN/Creatinine Ratio 22 % 01/08/19 05:20 Glucose 121 mg/dL (75-100) H 01/08/19 05:20 POC Glucose 153 (70-105) H 01/08/19 21:00 Calcium 9.0 mg/dL (8.4-10.2) 01/08/19 05:20 Total Creatine Kinase 239 units/L (55-170) H 01/06/19 15:37 CK-MB (CK-2) 1.0 ng/mL (0.0-4.0) 01/06/19 15:37 CK-MB (CK-2) Rel Index 0.4 (0-4) 01/06/19 15:37 Troponin T 0.015 ng/mL (0.00-0.029) 01/06/19 15:37 NT-Pro-B Natriuret Pep 6595 pg/mL (0-900) H 01/05/19 23:32 Active Medications - Current Medications Current Medications: Generic Name Dose Route Start Last Admin Trade Name Freq PRN Reason Stop Dose Admin Acetaminophen 650 mg 01/06/19 02:56 Tylenol PO Q4H PRN Fever >101 Aspirin 325 mg 01/06/19 10:00 01/08/19 10:24 Aspirin PO 325 mg QDAY SHERITA Administration Benzonatate 100 mg 01/08/19 01:00 01/08/19 21:48 Tessalon Perles PO 01/11/19 00:59 100 mg Q8HR SHERITA Administration Budesonide 0.5 mg 01/07/19 20:00 01/08/19 20:42 Pulmicort IH Not Given Q12HRT SHERITA Bumetanide 1 mg 01/08/19 18:00 01/08/19 21:48 Bumex IV Not Given BID@0600,1800 SHERITA Carvedilol 3.125 mg 01/08/19 11:00 01/08/19 21:52 Coreg PO Not Given BID SHERITA Dextrose 0 ml 01/06/19 03:08 D50w (25gm) Syringe IV Q30MIN PRN Hypoglycemia Fenofibrate 48 mg 01/06/19 10:00 01/08/19 10:24 Tricor PO 48 mg DAILY SHERITA Administration Heparin Sodium (Porcine) 5,000 unit 01/06/19 03:00 01/08/19 21:48 Heparin SUB-Q 5,000 unit Q12HR SHERITA Administration Piperacillin Sod/Tazobactam Sod 3.375 gm in 50 mls @ 100 mls/hr 01/07/19 06:00 01/08/19 21:52 Zosyn/Ns 3.375gm/50ml IV 01/10/19 05:59 100 mls/hr Q8HR SHERITA Administration Insulin Human Regular 0 units 01/07/19 22:00 01/08/19 22:10 Humulin R SUB-Q 1 units ACHS SHERITA Administration Protocol Levalbuterol HCl 0.63 mg 01/06/19 03:06 01/07/19 09:14 Xopenex IH 0.63 mg Q6HRT PRN Administration Shortness Of Breath Lisinopril 2.5 mg 01/06/19 10:00 01/08/19 10:25 Zestril PO Not Given DAILY SHERITA Loratadine 10 mg 01/06/19 10:00 01/08/19 10:23 Claritin PO 10 mg DAILY SHERITA Administration Morphine Sulfate 2 mg 01/06/19 03:00 Morphine IV Q3H PRN Pain, Moderate (4-6) Ondansetron HCl 4 mg 01/06/19 02:57 Zofran IV Q8H PRN Nausea And Vomiting Potassium Bicarbonate 25 meq 01/08/19 12:00 01/08/19 12:34 Klor-Con PO 25 meq QDAY SHERITA Administration
[2019-01-09] MEDS: BENZONATATE 100 MG CAP PO SCH ×3 (05:46→21:54)
[2019-01-09] MEDS: PIPERACILLIN/TAZOBACTAM 3.375 3.375 GM/50 ML BAG IV SCH ×3 (05:47→21:54)
[2019-01-09] MEDS: BUMETANIDE 1 MG/4 ML INJ IV SCH (06:01)
--- NOTE | 2019-01-09 06:39 | Event Note ---
Date: 01/09/19 Pharmacy out of IV Bumex, spoke with pharmacist and ordered IV Lasix 40 mgx1, 6 AM dose IV Bumex pharmacy is still out ; ordered another dose of IV Lasix 40 mg.
[2019-01-09] MEDS ORDERED: FUROSEMIDE 40 MG/4 ML INJ IV ONE ×2 (06:46)
[2019-01-09 06:58] LABS: BUN/Creatinine Ratio 20; Blood Urea Nitrogen 18 mg/dL (9-20); Calcium 8.9 mg/dL (8.4-10.2); Hemolysis Index 4
[2019-01-09] MEDS: INSULIN REGULAR, HUMAN 100 UNITS/1 ML SUB-Q SCH ×4 (07:30→21:58)
[2019-01-09] MEDS: BUDESONIDE 0.5 MG/2 ML NEBU IH ONE ×2 (09:09→09:44)
[2019-01-09] MEDS: BUDESONIDE 0.25 MG/2 ML NEBU IH SCH ×2 (09:24→21:44)
[2019-01-09] MEDS: HEPARIN 5,000 UNIT/1 ML VIAL SUB-Q SCH ×2 (10:28→21:58)
[2019-01-09] MEDS: CARVEDILOL 3.125 MG TAB PO SCH ×2 (10:29→21:57)
[2019-01-09] MEDS: ASPIRIN 325 MG TAB PO SCH (10:29)
[2019-01-09] MEDS: LORATADINE 10 MG TAB PO SCH (10:30)
[2019-01-09] MEDS: FENOFIBRATE 48 MG TAB PO SCH (10:30)
[2019-01-09] MEDS: LISINOPRIL 5 MG TAB PO SCH (10:30)
[2019-01-09] MEDS: K-LYTE 25 MEQ TABLET EFF PO SCH (10:30)
--- NOTE | 2019-01-09 12:21 | Progress Note ---
Assessment and Plan Pt reports low UOP and BLE edema persists. We attempted to convert IV lasix to IV bumex yesterday, however, pharmacy does not have IV bumex in stock and thus pt has continued to receive IV lasix. BPs low. Cont lasix and initiate dobutamine gtt. Consider tx to [facility] if no clinical improvement noted in the next 24-48Hr. Consider coronary angiography for definitive diagnosis once medically stabilized. Pt reports h/o cardiomyopathy and HF for approx the past 6-8 years. Cardiac defibrillator recommended (LifeVest and/or AICD) in setting of severe CMP and NSVT. He states that Dr. Reeder has also made this recommendation and he has chronically declined LifeVest and/or AICD. The patient has been seen in conjunction with Dr. Jessica Becerra who agrees with the assessment and plan of care. - Patient Problems (1) Acute HFrEF (heart failure with reduced ejection fraction) Current Visit: Yes Status: Acute (2) Dilated cardiomyopathy Current Visit: Yes Status: Chronic (3) HTN (hypertension) Current Visit: Yes Status: Chronic (4) Diabetes Current Visit: Yes Status: Chronic (5) NSVT (nonsustained ventricular tachycardia) Current Visit: Yes Status: Acute (6) History of ETOH abuse Current Visit: Yes Status: Chronic (7) Abnormal stress test Current Visit: Yes Status: Acute (8) Pulmonary HTN Current Visit: Yes Status: Chronic Subjective Date of service: 01/09/19 Principal diagnosis: HF Interval history: pt sitting up in chair, BLE persists. BPs low. in SR on tele with frequent NSVT overnight. Objective Last Vital Signs Temp 98.6 F 01/09/19 04:38 Pulse 97 H 01/09/19 10:30 Resp 18 01/09/19 09:14 BP 93/58 01/09/19 10:30 Pulse Ox 100 01/09/19 04:38 - Physical Examination General: No Apparent Distress HEENT: Positive: PERRL, Normocephaly, Mucus Membranes Moist Neck: Positive: neck supple, trachea midline Cardiac: Positive: Reg Rate and Rhythm, S1/S2 Lungs: Positive: Decreased Breath Sounds Neuro: Positive: Grossly Intact Abdomen: Negative: Tender Skin: Negative: Rash Musculoskeletal: No Pain Extremities: Present: +3 Edema (BLE) - Labs and Meds Comprehensive Metabolic Panel 01/09/19 Range/Units 04:54 Sodium 140 (137-145) mmol/L Potassium 4.2 (3.6-5.0) mmol/L Chloride 97.1 L (98-107) mmol/L Carbon Dioxide 28 (22-30) mmol/L BUN 18 (9-20) mg/dL Creatinine 0.9 (0.8-1.5) mg/dL Glucose 108 H (75-100) mg/dL Calcium 8.9 (8.4-10.2) mg/dL - Imaging and Cardiology EKG: report reviewed, image reviewed Echo: report reviewed
[2019-01-09] MEDS: DOBUTamine/D5W 500 MG/250 ML 500 MG/250 ML BAG IV SCH (14:11)
--- NOTE | 2019-01-09 15:34 | Progress Note ---
Assessment and Plan Assessment and plan: Chest pain Stress test abnormal For cardiac cath when stable patient told me today he does not want cardiac cath Acute on chronic systolic CHF Started on Bumex iv Coreg cardiology following patient had declined life vest and declined AICD multiple times Hypotension Started on Dobutamine Diabetes mellitus type 2 Accucheck qac and hs NSVT Full code status History Interval history: No more chest pain less shortness of breath legs still swollen patient declines life vest, declines AICD, declines cardiac cath Hospitalist Physical - Physical exam Narrative exam: Gen: Not in acute distress, lying in bed,obese HEENT: Normocephalic, atraumatic Neck: supple, no JVD Heart: S1 and S2 reg, no murmurs, rubs or gallop Lungs: Bilateral basal crackles, no rhonchi, no wheeze Abd: soft, non tender, non distended, normal BS, Ext: Bilat lower ext edema, no clubbing, no cyanosis Neuro: Awake, alert, oriented X 3, no focal neurological signs - Constitutional Vitals: Temp Pulse Resp BP Pulse Ox 98.6 F 97 H 20 93/58 96 01/09/19 04:38 01/09/19 10:30 01/09/19 10:00 01/09/19 10:30 01/09/19 10:00 Results - Labs CBC & Chem 7: 01/05/19 23:32 01/09/19 04:54 Labs: Laboratory Last Values WBC 13.2 K/mm3 (4.5-11.0) H 01/05/19 23:32 RBC 4.45 M/mm3 (3.65-5.03) 01/05/19 23:32 Hgb 11.3 gm/dl (11.8-15.2) L 01/05/19 23:32 Hct 34.5 % (35.5-45.6) L 01/05/19 23:32 MCV 78 fl (84-94) L 01/05/19 23:32 MCH 26 pg (28-32) L 01/05/19 23:32 MCHC 33 % (32-34) 01/05/19 23:32 RDW 16.3 % (13.2-15.2) H 01/05/19 23:32 Plt Count 321 K/mm3 (140-440) 01/05/19 23:32 Lymph % (Auto) 8.1 % (13.4-35.0) L 01/05/19 23:32 [place] % (Auto) 13.0 % (0.0-7.3) H 01/05/19 23:32 Eos % (Auto) 0.1 % (0.0-4.3) 01/05/19 23:32 Baso % (Auto) 0.6 % (0.0-1.8) 01/05/19 23:32 Lymph # 1.1 K/mm3 (1.2-5.4) L 01/05/19 23:32 [place] # 1.7 K/mm3 (0.0-0.8) H 01/05/19 23:32 Eos # 0.0 K/mm3 (0.0-0.4) 01/05/19 23:32 Baso # 0.1 K/mm3 (0.0-0.1) 01/05/19 23:32 Seg Neutrophils % 78.2 % (40.0-70.0) H 01/05/19 23:32 Seg Neutrophils # 10.4 K/mm3 (1.8-7.7) H 01/05/19 23:32 D-Dimer 947.79 ng/mlDDU (0-234) H 01/05/19 23:32 Sodium 140 mmol/L (137-145) 01/09/19 04:54 Potassium 4.2 mmol/L (3.6-5.0) 01/09/19 04:54 Chloride 97.1 mmol/L (98-107) L 01/09/19 04:54 Carbon Dioxide 28 mmol/L (22-30) 01/09/19 04:54 Anion Gap 19 mmol/L 01/09/19 04:54 BUN 18 mg/dL (9-20) 01/09/19 04:54 Creatinine 0.9 mg/dL (0.8-1.5) 01/09/19 04:54 Estimated GFR > 60 ml/min 01/09/19 04:54 BUN/Creatinine Ratio 20 % 01/09/19 04:54 Glucose 108 mg/dL (75-100) H 01/09/19 04:54 POC Glucose 119 (70-105) H 01/09/19 13:00 Calcium 8.9 mg/dL (8.4-10.2) 01/09/19 04:54 Magnesium 2.30 mg/dL (1.7-2.3) 01/09/19 04:54 Total Creatine Kinase 239 units/L (55-170) H 01/06/19 15:37 CK-MB (CK-2) 1.0 ng/mL (0.0-4.0) 01/06/19 15:37 CK-MB (CK-2) Rel Index 0.4 (0-4) 01/06/19 15:37 Troponin T 0.015 ng/mL (0.00-0.029) 01/06/19 15:37 NT-Pro-B Natriuret Pep 6595 pg/mL (0-900) H 01/05/19 23:32 Active Medications - Current Medications Current Medications: Generic Name Dose Route Start Last Admin Trade Name Freq PRN Reason Stop Dose Admin Acetaminophen 650 mg 01/06/19 02:56 Tylenol PO Q4H PRN Fever >101 Aspirin 325 mg 01/06/19 10:00 01/09/19 10:29 Aspirin PO 325 mg QDAY SHERITA Administration Benzonatate 100 mg 01/08/19 01:00 01/09/19 14:10 Tessalon Perles PO 01/11/19 00:59 100 mg Q8HR SHERITA Administration Budesonide 0.5 mg 01/07/19 20:00 01/09/19 09:24 Pulmicort IH 0.5 mg Q12HRT SHERITA Administration Carvedilol 3.125 mg 01/08/19 11:00 01/09/19 10:29 Coreg PO 3.125 mg BID SHERITA Administration Dextrose 0 ml 01/06/19 03:08 D50w (25gm) Syringe IV Q30MIN PRN Hypoglycemia Fenofibrate 48 mg 01/06/19 10:00 01/09/19 10:30 Tricor PO 48 mg DAILY SHERITA Administration Furosemide 40 mg 01/09/19 18:00 Lasix IV 0600,1800 SHERITA Heparin Sodium (Porcine) 5,000 unit 01/06/19 03:00 01/09/19 10:28 Heparin SUB-Q 5,000 unit Q12HR SHERITA Administration Piperacillin Sod/Tazobactam Sod 3.375 gm in 50 mls @ 100 mls/hr 01/07/19 06:00 01/09/19 14:11 Zosyn/Ns 3.375gm/50ml IV 01/10/19 05:59 100 mls/hr Q8HR SHERITA Administration Dobutamine HCl/Dextrose 500 mg in 250 mls @ 10.268 mls/hr 01/09/19 11:00 01/09/19 14:11 Dobutrex Drip 500mg/D5w 250ml IV 2.5 mcg/kg/min TITR SHERITA 10.268 mls/hr Administration 2.5 MCG/KG/MIN Insulin Human Regular 0 units 01/07/19 22:00 01/09/19 11:30 Humulin R SUB-Q Not Given ACHS [facility] Protocol Levalbuterol HCl 0.63 mg 01/06/19 03:06 01/07/19 09:14 Xopenex IH 0.63 mg Q6HRT PRN Administration Shortness Of Breath Lisinopril 2.5 mg 01/06/19 10:00 01/09/19 10:30 Zestril PO Not Given DAILY SHERITA Loratadine 10 mg 01/06/19 10:00 01/09/19 10:30 Claritin PO 10 mg DAILY SHERITA Administration Morphine Sulfate 2 mg 01/06/19 03:00 Morphine IV Q3H PRN Pain, Moderate (4-6) Ondansetron HCl 4 mg 01/06/19 02:57 Zofran IV Q8H PRN Nausea And Vomiting Potassium Bicarbonate 25 meq 01/08/19 12:00 01/09/19 10:30 Klor-Con PO 25 meq QDAY SHERITA Administration
[2019-01-09] MEDS: FUROSEMIDE 40 MG/4 ML INJ IV SCH (18:27)
[2019-01-10] MEDS: BENZONATATE 100 MG CAP PO SCH ×3 (05:16→21:50)
[2019-01-10] MEDS: FUROSEMIDE 40 MG/4 ML INJ IV SCH (05:16)
[2019-01-10 07:32] LABS: BUN/Creatinine Ratio 16; Blood Urea Nitrogen 16 mg/dL (9-20); Calcium 8.8 mg/dL (8.4-10.2); Hemolysis Index 4
[2019-01-10 07:41] LABS: Hematocrit 36.5 % (35.5-45.6); Hemoglobin 12.1 gm/dl (11.8-15.2); Mean Corpuscular HGB Conc 33 % (32-34); Mean Corpuscular Volume 78 fl (84-94); Platelet Count 401 K/mm3 (140-440)
[2019-01-10] MEDS: INSULIN REGULAR, HUMAN 100 UNITS/1 ML SUB-Q SCH ×4 (08:05→21:52)
[2019-01-10] MEDS: HEPARIN 5,000 UNIT/1 ML VIAL SUB-Q SCH ×2 (10:16→21:51)
[2019-01-10] MEDS: ASPIRIN 325 MG TAB PO SCH (10:16)
[2019-01-10] MEDS: FENOFIBRATE 48 MG TAB PO SCH (10:16)
[2019-01-10] MEDS: K-LYTE 25 MEQ TABLET EFF PO SCH (10:16)
[2019-01-10] MEDS: LORATADINE 10 MG TAB PO SCH (10:16)
[2019-01-10] MEDS: CARVEDILOL 3.125 MG TAB PO SCH ×2 (10:17→21:50)
[2019-01-10] MEDS: LISINOPRIL 5 MG TAB PO SCH (10:17)
[2019-01-10] MEDS: BUDESONIDE 0.25 MG/2 ML NEBU IH SCH ×2 (10:25→20:46)
--- NOTE | 2019-01-10 10:50 | Progress Note ---
Assessment and Plan Assessment and plan: Chest pain Stress test abnormal For cardiac cath when stable patient told me today he does not want cardiac cath Acute on chronic systolic CHF Started on Bumex iv Started on Dobutamine drip Coreg Cardiology following Patient had declined life vest and declined AICD multiple times cardiology considering transfer to [place] Hypotension Started on Dobutamine Diabetes mellitus type 2 Accucheck qac and hs NSVT Full code status History Interval history: No more chest pain less shortness of breath legs still swollen patient declines life vest, declines AICD, declines cardiac cath Hospitalist Physical - Physical exam Narrative exam: Gen: Not in acute distress, lying in bed,obese HEENT: Normocephalic, atraumatic Neck: supple, no JVD Heart: S1 and S2 reg, no murmurs, rubs or gallop Lungs: Bilateral basal crackles, no rhonchi, no wheeze Abd: soft, non tender, non distended, normal BS, Ext: Bilat lower ext edema, no clubbing, no cyanosis Neuro: Awake, alert, oriented X 3, no focal neurological signs - Constitutional Vitals: Temp Pulse Resp BP Pulse Ox 98.1 F 94 H 18 91/44 95 01/10/19 07:40 01/10/19 07:40 01/10/19 07:40 01/10/19 10:17 01/10/19 07:40 Results - Labs CBC & Chem 7: 01/10/19 07:23 01/10/19 06:34 Labs: Laboratory Last Values WBC 9.8 K/mm3 (4.5-11.0) 01/10/19 07:23 RBC 4.70 M/mm3 (3.65-5.03) 01/10/19 07:23 Hgb 12.1 gm/dl (11.8-15.2) 01/10/19 07:23 Hct 36.5 % (35.5-45.6) 01/10/19 07:23 MCV 78 fl (84-94) L 01/10/19 07:23 MCH 26 pg (28-32) L 01/10/19 07:23 MCHC 33 % (32-34) 01/10/19 07:23 RDW 16.0 % (13.2-15.2) H 01/10/19 07:23 Plt Count 401 K/mm3 (140-440) 01/10/19 07:23 Lymph % (Auto) 8.1 % (13.4-35.0) L 01/05/19 23:32 [place] % (Auto) 13.0 % (0.0-7.3) H 01/05/19 23:32 Eos % (Auto) 0.1 % (0.0-4.3) 01/05/19 23:32 Baso % (Auto) 0.6 % (0.0-1.8) 01/05/19 23:32 Lymph # 1.1 K/mm3 (1.2-5.4) L 01/05/19 23:32 [place] # 1.7 K/mm3 (0.0-0.8) H 01/05/19 23:32 Eos # 0.0 K/mm3 (0.0-0.4) 01/05/19 23:32 Baso # 0.1 K/mm3 (0.0-0.1) 01/05/19 23:32 Seg Neutrophils % 78.2 % (40.0-70.0) H 01/05/19 23:32 Seg Neutrophils # 10.4 K/mm3 (1.8-7.7) H 01/05/19 23:32 D-Dimer 947.79 ng/mlDDU (0-234) H 01/05/19 23:32 Sodium 141 mmol/L (137-145) 01/10/19 06:34 Potassium 4.0 mmol/L (3.6-5.0) 01/10/19 06:34 Chloride 99.9 mmol/L (98-107) 01/10/19 06:34 Carbon Dioxide 28 mmol/L (22-30) 01/10/19 06:34 Anion Gap 17 mmol/L 01/10/19 06:34 BUN 16 mg/dL (9-20) 01/10/19 06:34 Creatinine 1.0 mg/dL (0.8-1.5) 01/10/19 06:34 Estimated GFR > 60 ml/min 01/10/19 06:34 BUN/Creatinine Ratio 16 % 01/10/19 06:34 Glucose 103 mg/dL (75-100) H 01/10/19 06:34 POC Glucose 101 (70-105) 01/10/19 07:49 Calcium 8.8 mg/dL (8.4-10.2) 01/10/19 06:34 Magnesium 2.30 mg/dL (1.7-2.3) 01/09/19 04:54 Total Creatine Kinase 239 units/L (55-170) H 01/06/19 15:37 CK-MB (CK-2) 1.0 ng/mL (0.0-4.0) 01/06/19 15:37 CK-MB (CK-2) Rel Index 0.4 (0-4) 01/06/19 15:37 Troponin T 0.015 ng/mL (0.00-0.029) 01/06/19 15:37 NT-Pro-B Natriuret Pep 6595 pg/mL (0-900) H 01/05/19 23:32 Active Medications - Current Medications Current Medications: Generic Name Dose Route Start Last Admin Trade Name Freq PRN Reason Stop Dose Admin Acetaminophen 650 mg 01/06/19 02:56 Tylenol PO Q4H PRN Fever >101 Aspirin 325 mg 01/06/19 10:00 01/10/19 10:16 Aspirin PO 325 mg QDAY SHERITA Administration Benzonatate 100 mg 01/08/19 01:00 01/10/19 05:16 Tessalon Perles PO 01/11/19 00:59 100 mg Q8HR SHERITA Administration Budesonide 0.5 mg 01/07/19 20:00 01/10/19 10:25 Pulmicort IH Not Given Q12HRT SHERITA Carvedilol 3.125 mg 01/08/19 11:00 01/10/19 10:17 Coreg PO Not Given BID SHERITA Dextrose 0 ml 01/06/19 03:08 D50w (25gm) Syringe IV Q30MIN PRN Hypoglycemia Fenofibrate 48 mg 01/06/19 10:00 01/10/19 10:16 Tricor PO 48 mg DAILY SHERITA Administration Furosemide 40 mg 01/09/19 18:00 01/10/19 05:16 Lasix IV 40 mg 0600,1800 SHERITA Administration Heparin Sodium (Porcine) 5,000 unit 01/06/19 03:00 01/10/19 10:16 Heparin SUB-Q 5,000 unit Q12HR SHERITA Administration Dobutamine HCl/Dextrose 500 mg in 250 mls @ 10.268 mls/hr 01/09/19 11:00 01/09/19 14:11 Dobutrex Drip 500mg/D5w 250ml IV 2.5 mcg/kg/min TITR SHERITA 10.268 mls/hr Administration 2.5 MCG/KG/MIN Insulin Human Regular 0 units 01/07/19 22:00 01/09/19 21:58 Humulin R SUB-Q Not Given ACHS [facility] Protocol Levalbuterol HCl 0.63 mg 01/06/19 03:06 01/07/19 09:14 Xopenex IH 0.63 mg Q6HRT PRN Administration Shortness Of Breath Lisinopril 2.5 mg 01/06/19 10:00 01/10/19 10:17 Zestril PO Not Given DAILY SHERITA Loratadine 10 mg 01/06/19 10:00 01/10/19 10:16 Claritin PO 10 mg DAILY SHERITA Administration Morphine Sulfate 2 mg 01/06/19 03:00 Morphine IV Q3H PRN Pain, Moderate (4-6) Ondansetron HCl 4 mg 01/06/19 02:57 Zofran IV Q8H PRN Nausea And Vomiting Potassium Bicarbonate 25 meq 01/08/19 12:00 01/10/19 10:16 Klor-Con PO 25 meq QDAY SHERITA Administration
--- NOTE | 2019-01-10 15:16 | Progress Note ---
Assessment and Plan Pt reports UOP has increased a little since initiation of dobutamine gtt, BLE edema persists. Per pharmacy, IV bumex is now available and thus we will convert IV lasix to IV bumex BID. Increase dobutamine gtt to 5mcg/kg/min. Consider tx to [facility] failure service if no clinical improvement noted in the next 24-48Hr - pt declined transfer this morning, although he told the hospitalist this afternoon that he would consider transfer if indicated. Pt reports h/o cardiomyopathy and HF for approx the past 6-8 years. He states he underwent LHC 6 years ago and was told he had normal coronaries. Coronary angiography once medically stabilized is recommended in setting of abnormal stress test and severe CMP. However, pt currently declining LHC. Additionally, Cardiac defibrillator recommended (LifeVest and/or AICD) in setting of severe CMP and NSVT. Pt declines LifeVest/AICD. He states that Dr. Reeder has also made this recommendation which he has chronically declined. The patient has been seen in conjunction with Dr. Jessica Becerra who agrees with the assessment and plan of care. - Patient Problems (1) Acute HFrEF (heart failure with reduced ejection fraction) Current Visit: Yes Status: Acute (2) Dilated cardiomyopathy Current Visit: Yes Status: Chronic (3) HTN (hypertension) Current Visit: Yes Status: Chronic (4) Diabetes Current Visit: Yes Status: Chronic (5) NSVT (nonsustained ventricular tachycardia) Current Visit: Yes Status: Acute (6) History of ETOH abuse Current Visit: Yes Status: Chronic (7) Abnormal stress test Current Visit: Yes Status: Acute (8) Pulmonary HTN Current Visit: Yes Status: Chronic Subjective Date of service: 01/10/19 Principal diagnosis: HF Interval history: pt resting in bed, BLE persists. BPs low. in SR on tele with frequent NSVT overnight. dobutamine gtt infusing. Objective Last Vital Signs Temp 98.1 F 01/10/19 07:40 Pulse 94 H 01/10/19 10:00 Resp 18 01/10/19 07:40 BP 91/44 01/10/19 10:17 Pulse Ox 97 01/10/19 10:00 - Physical Examination General: No Apparent Distress HEENT: Positive: PERRL, Normocephaly, Mucus Membranes Moist Neck: Positive: neck supple, trachea midline Cardiac: Positive: Reg Rate and Rhythm, S1/S2 Lungs: Positive: Decreased Breath Sounds Neuro: Positive: Grossly Intact Abdomen: Negative: Tender Skin: Negative: Rash Musculoskeletal: No Pain Extremities: Present: +3 Edema (BLE) - Labs and Meds CBC 01/10/19 Range/Units 07:23 WBC 9.8 (4.5-11.0) K/mm3 RBC 4.70 (3.65-5.03) M/mm3 Hgb 12.1 (11.8-15.2) gm/dl Hct 36.5 (35.5-45.6) % Plt Count 401 (140-440) K/mm3 Comprehensive Metabolic Panel 01/10/19 Range/Units 06:34 Sodium 141 (137-145) mmol/L Potassium 4.0 (3.6-5.0) mmol/L Chloride 99.9 (98-107) mmol/L Carbon Dioxide 28 (22-30) mmol/L BUN 16 (9-20) mg/dL Creatinine 1.0 (0.8-1.5) mg/dL Glucose 103 H (75-100) mg/dL Calcium 8.8 (8.4-10.2) mg/dL - Imaging and Cardiology EKG: report reviewed, image reviewed Echo: report reviewed (EF 10-15%, LV, LA, RV severely dilated, RV systolic function severely reduced, mild to mod MR and TR, pulm HTN with RVSP 79mmHg. ) - Telemetry EKG Rhythm: Sinus Rhythm
[2019-01-10] MEDS ORDERED: POLYETHYLENE GLYCOL 3350 17 GM POWDER PO PRN (15:36)
[2019-01-10] MEDS: DOBUTamine/D5W 500 MG/250 ML 500 MG/250 ML BAG IV SCH (15:58)
[2019-01-10] MEDS ORDERED: BUMETANIDE 1 MG/4 ML INJ IV SCH (18:00)
[2019-01-10] MEDS: BUMETANIDE 2.5 MG/10 ML VIAL IV SCH (18:30)
[2019-01-11] MEDS: DOBUTamine/D5W 500 MG/250 ML 500 MG/250 ML BAG IV SCH ×2 (04:44→21:06)
[2019-01-11] MEDS: BUMETANIDE 2.5 MG/10 ML VIAL IV SCH (07:45)
[2019-01-11] MEDS: INSULIN REGULAR, HUMAN 100 UNITS/1 ML SUB-Q SCH ×4 (08:19→22:06)
[2019-01-11] MEDS: BUDESONIDE 0.25 MG/2 ML NEBU IH SCH ×2 (09:09→19:22)
[2019-01-11 10:06] LABS: BUN/Creatinine Ratio 14; Blood Urea Nitrogen 14 mg/dL (9-20); Calcium 8.8 mg/dL (8.4-10.2); Hemolysis Index 18
[2019-01-11] MEDS: FENOFIBRATE 48 MG TAB PO SCH (11:14)
[2019-01-11] MEDS: LORATADINE 10 MG TAB PO SCH (11:14)
[2019-01-11] MEDS: K-LYTE 25 MEQ TABLET EFF PO SCH (11:14)
[2019-01-11] MEDS: ASPIRIN 325 MG TAB PO SCH (11:14)
--- NOTE | 2019-01-11 11:15 | Progress Note ---
Assessment and Plan Acute on chronic HFrEF Dilated cardiomyopathy Nonsustained VT Hypertension Pulmonary hypertension History of EtOH abuse Continue dobutamine drip Continue IV diuresis Strict I's and O Consider tx to [place] [facility] if no clinical improvement noted in the next 24-48Hr Pt declines LifeVest/AICD Subjective Date of service: 01/11/19 Principal diagnosis: HF Interval history: Patient is sitting up in a chair, continues to complain of shortness of breath. He reports seizure and output is somewhat improved. Objective Vital Signs Temp Pulse Pulse Resp Resp BP BP 01/11/19 09:10 104 H 20 01/11/19 05:20 98.2 F 100 H 16 99/63 01/10/19 23:34 97.7 F 112 H 18 103/63 01/10/19 22:00 77 01/10/19 21:50 107 H 108/69 01/10/19 20:49 102 H 20 01/10/19 19:41 98.2 F 107 H 18 108/69 01/10/19 16:20 68 24 133/75 Pulse Ox 01/11/19 09:10 01/11/19 05:20 99 01/10/19 23:34 95 01/10/19 22:00 01/10/19 21:50 01/10/19 20:49 01/10/19 19:41 96 01/10/19 16:20 98 - Physical Examination General: No Apparent Distress HEENT: Positive: PERRL, Normocephaly, Mucus Membranes Moist Neck: Positive: neck supple, trachea midline Cardiac: Positive: Regular Rhythm, Tachycardia Lungs: Positive: Decreased Breath Sounds Neuro: Positive: Grossly Intact Abdomen: Negative: Tender Skin: Negative: Rash Musculoskeletal: No Pain Extremities: Present: +3 Edema (BLE) - Labs and Meds Comprehensive Metabolic Panel 01/11/19 Range/Units 07:22 Sodium 141 (137-145) mmol/L Potassium 4.2 (3.6-5.0) mmol/L Chloride 99.0 (98-107) mmol/L Carbon Dioxide 30 (22-30) mmol/L BUN 14 (9-20) mg/dL Creatinine 1.0 (0.8-1.5) mg/dL Glucose 130 H (75-100) mg/dL Calcium 8.8 (8.4-10.2) mg/dL - Imaging and Cardiology EKG: report reviewed, image reviewed Echo: report reviewed (EF 10-15%, LV, LA, RV severely dilated, RV systolic function severely reduced, mild to mod MR and TR, pulm HTN with RVSP 79mmHg. )
[2019-01-11] MEDS: LISINOPRIL 5 MG TAB PO SCH (11:17)
[2019-01-11] MEDS: CARVEDILOL 3.125 MG TAB PO SCH ×2 (11:18→22:01)
[2019-01-11] MEDS: HEPARIN 5,000 UNIT/1 ML VIAL SUB-Q SCH ×2 (11:18→22:01)
--- NOTE | 2019-01-11 11:59 | Progress Note ---
Assessment and Plan Assessment and plan: Patient is 58-year-old with chronic systolic CHF, diabetes. He presented with chest pain and r shortness of breath on 01/06/2019. He was seen and evaluated in Emergency department and diagnosed with pneumonia and CHF exacerbation. patient was admitted evaluated by cardiology. There has not been much im provement in CHF and cardiology considering transfer to [place] Sunday if no improvement. Chest pain Stress test abnormal For cardiac cath when stable patient told me he does not want cardiac cath Acute on chronic systolic CHF Was on Lasix iv, now switched to Bumex iv Started on Dobutamine drip Coreg Cardiology following Patient had declined life vest and declined AICD multiple times cardiology considering transfer to [place] if no improvement by Sunday Pneumonia Completed Zosyn Hypotension Started on Dobutamine Diabetes mellitus type 2 Accucheck qac and hs NSVT Full code status History Interval history: No more chest pain less shortness of breath legs still swollen patient declines life vest, declines AICD, declines cardiac cath Hospitalist Physical - Physical exam Narrative exam: Gen: Not in acute distress, lying in bed,obese HEENT: Normocephalic, atraumatic Neck: supple, no JVD Heart: S1 and S2 reg, no murmurs, rubs or gallop Lungs: Bilateral basal crackles, no rhonchi, no wheeze Abd: soft, non tender, non distended, normal BS, Ext: Bilat lower ext edema, no clubbing, no cyanosis Neuro: Awake, alert, oriented X 3, no focal neurological signs - Constitutional Vitals: Temp Pulse Resp BP Pulse Ox 98.2 F 105 H 20 99/68 99 01/11/19 05:20 01/11/19 11:17 01/11/19 09:10 01/11/19 11:18 01/11/19 05:20 Results - Labs CBC & Chem 7: 01/10/19 07:23 01/11/19 07:22 Labs: Laboratory Last Values WBC 9.8 K/mm3 (4.5-11.0) 01/10/19 07:23 RBC 4.70 M/mm3 (3.65-5.03) 01/10/19 07:23 Hgb 12.1 gm/dl (11.8-15.2) 01/10/19 07:23 Hct 36.5 % (35.5-45.6) 01/10/19 07:23 MCV 78 fl (84-94) L 01/10/19 07:23 MCH 26 pg (28-32) L 01/10/19 07:23 MCHC 33 % (32-34) 01/10/19 07:23 RDW 16.0 % (13.2-15.2) H 01/10/19 07:23 Plt Count 401 K/mm3 (140-440) 01/10/19 07:23 Lymph % (Auto) 8.1 % (13.4-35.0) L 01/05/19 23:32 [place] % (Auto) 13.0 % (0.0-7.3) H 01/05/19 23:32 Eos % (Auto) 0.1 % (0.0-4.3) 01/05/19 23:32 Baso % (Auto) 0.6 % (0.0-1.8) 01/05/19 23:32 Lymph # 1.1 K/mm3 (1.2-5.4) L 01/05/19 23:32 [place] # 1.7 K/mm3 (0.0-0.8) H 01/05/19 23:32 Eos # 0.0 K/mm3 (0.0-0.4) 01/05/19 23:32 Baso # 0.1 K/mm3 (0.0-0.1) 01/05/19 23:32 Seg Neutrophils % 78.2 % (40.0-70.0) H 01/05/19 23:32 Seg Neutrophils # 10.4 K/mm3 (1.8-7.7) H 01/05/19 23:32 D-Dimer 947.79 ng/mlDDU (0-234) H 01/05/19 23:32 Sodium 141 mmol/L (137-145) 01/11/19 07:22 Potassium 4.2 mmol/L (3.6-5.0) 01/11/19 07:22 Chloride 99.0 mmol/L (98-107) 01/11/19 07:22 Carbon Dioxide 30 mmol/L (22-30) 01/11/19 07:22 Anion Gap 16 mmol/L 01/11/19 07:22 BUN 14 mg/dL (9-20) 01/11/19 07:22 Creatinine 1.0 mg/dL (0.8-1.5) 01/11/19 07:22 Estimated GFR > 60 ml/min 01/11/19 07:22 BUN/Creatinine Ratio 14 % 01/11/19 07:22 Glucose 130 mg/dL (75-100) H 01/11/19 07:22 POC Glucose 147 (70-105) H 01/11/19 08:20 Calcium 8.8 mg/dL (8.4-10.2) 01/11/19 07:22 Magnesium 2.30 mg/dL (1.7-2.3) 01/09/19 04:54 Total Creatine Kinase 239 units/L (55-170) H 01/06/19 15:37 CK-MB (CK-2) 1.0 ng/mL (0.0-4.0) 01/06/19 15:37 CK-MB (CK-2) Rel Index 0.4 (0-4) 01/06/19 15:37 Troponin T 0.015 ng/mL (0.00-0.029) 01/06/19 15:37 NT-Pro-B Natriuret Pep 6595 pg/mL (0-900) H 01/05/19 23:32 Active Medications - Current Medications Current Medications: Generic Name Dose Route Start Last Admin Trade Name Freq PRN Reason Stop Dose Admin Acetaminophen 650 mg 01/06/19 02:56 Tylenol PO Q4H PRN Fever >101 Aspirin 325 mg 01/06/19 10:00 01/11/19 11:14 Aspirin PO 325 mg QDAY SHERITA Administration Budesonide 0.5 mg 01/07/19 20:00 01/11/19 09:09 Pulmicort IH 0.5 mg Q12HRT SHERITA Administration Bumetanide 1 mg 01/10/19 18:00 01/11/19 07:45 Bumex IV 1 mg BID@0600,1800 SHERITA Administration Carvedilol 3.125 mg 01/08/19 11:00 01/11/19 11:18 Coreg PO Not Given BID SHERITA Dextrose 0 ml 01/06/19 03:08 D50w (25gm) Syringe IV Q30MIN PRN Hypoglycemia Fenofibrate 48 mg 01/06/19 10:00 01/11/19 11:14 Tricor PO 48 mg DAILY SHERITA Administration Heparin Sodium (Porcine) 5,000 unit 01/06/19 03:00 01/11/19 11:18 Heparin SUB-Q 5,000 unit Q12HR SHERITA Administration Dobutamine HCl/Dextrose 500 mg in 250 mls @ 20.535 mls/hr 01/09/19 11:00 01/11/19 04:44 Dobutrex Drip 500mg/D5w 250ml IV 2.5 mcg/kg/min TITR SHERITA 10.268 mls/hr Administration 5 MCG/KG/MIN Insulin Human Regular 0 units 01/07/19 22:00 01/11/19 08:19 Humulin R SUB-Q Not Given ACHS [facility] Protocol Levalbuterol HCl 0.63 mg 01/06/19 03:06 01/07/19 09:14 Xopenex IH 0.63 mg Q6HRT PRN Administration Shortness Of Breath Lisinopril 2.5 mg 01/06/19 10:00 01/11/19 11:17 Zestril PO Not Given DAILY SHERITA Loratadine 10 mg 01/06/19 10:00 01/11/19 11:14 Claritin PO 10 mg DAILY SHERITA Administration Morphine Sulfate 2 mg 01/06/19 03:00 Morphine IV Q3H PRN Pain, Moderate (4-6) Ondansetron HCl 4 mg 01/06/19 02:57 Zofran IV Q8H PRN Nausea And Vomiting Polyethylene Glycol 17 gm 01/10/19 15:36 01/10/19 16:24 Miralax 3350 PO 17 gm BID PRN Administration Constipation Potassium Bicarbonate 25 meq 01/08/19 12:00 01/11/19 11:14 Klor-Con PO 25 meq QDAY SHERITA Administration
[2019-01-12] MEDS: ACETAMINOPHEN 325 MG TAB PO PRN (06:30)
[2019-01-12] MEDS: BUMETANIDE 2.5 MG/10 ML VIAL IV SCH ×3 (06:31→20:11)
[2019-01-12 06:59] LABS: BUN/Creatinine Ratio 16; Blood Urea Nitrogen 14 mg/dL (9-20); Hemolysis Index 5
[2019-01-12] MEDS: DOBUTamine/D5W 500 MG/250 ML 500 MG/250 ML BAG IV SCH ×2 (08:01→20:17)
[2019-01-12] MEDS: INSULIN REGULAR, HUMAN 100 UNITS/1 ML SUB-Q SCH ×4 (09:26→22:55)
[2019-01-12] MEDS: CARVEDILOL 3.125 MG TAB PO SCH ×2 (10:06→23:00)
[2019-01-12] MEDS: LISINOPRIL 5 MG TAB PO SCH (10:07)
[2019-01-12] MEDS: K-LYTE 25 MEQ TABLET EFF PO SCH (10:07)
[2019-01-12] MEDS: ASPIRIN 325 MG TAB PO SCH (10:07)
[2019-01-12] MEDS: FENOFIBRATE 48 MG TAB PO SCH (10:08)
[2019-01-12] MEDS: HEPARIN 5,000 UNIT/1 ML VIAL SUB-Q SCH ×2 (10:10→22:57)
[2019-01-12] MEDS: LORATADINE 10 MG TAB PO SCH (10:10)
--- NOTE | 2019-01-12 12:00 | Progress Note ---
Assessment and Plan Acute on chronic HFrEF Dilated cardiomyopathy Nonsustained VT Hypertension Pulmonary hypertension History of EtOH abuse Continue dobutamine drip/Discontinue in AM Continue IV diuresis Strict I's and O Consider tx to [place] [facility] failure service if no clinical improvement noted in the next 24-48Hr Pt declines LifeVest/AICD Subjective Date of service: 01/12/19 Principal diagnosis: HF Interval history: Patient is sitting up in a chair. He states urine output is somewhat increased. Objective Vital Signs Temp Pulse Pulse Pulse Pulse Resp BP 01/12/19 11:35 98.1 F 107 H 18 107/65 01/12/19 10:07 110 H 86/38 01/12/19 10:06 110 H 86/38 01/12/19 10:05 104 H 86/38 01/12/19 10:00 109 H 109 H 109 H 19 01/12/19 05:14 98.6 F 109 H 20 104/70 01/12/19 02:14 98.8 F 109 H 20 99/59 01/11/19 22:01 107 H 106/70 01/11/19 22:00 109 H 105 H 105 H 18 01/11/19 19:39 98.3 F 105 H 24 102/65 Pulse Ox 01/12/19 11:35 99 01/12/19 10:07 01/12/19 10:06 01/12/19 10:05 92 01/12/19 10:00 99 01/12/19 05:14 95 01/12/19 02:14 97 01/11/19 22:01 01/11/19 22:00 97 01/11/19 19:39 95 - Physical Examination General: No Apparent Distress HEENT: Positive: PERRL, Normocephaly, Mucus Membranes Moist Neck: Positive: neck supple, trachea midline Cardiac: Positive: Regular Rhythm, Tachycardia Lungs: Positive: Decreased Breath Sounds Neuro: Positive: Grossly Intact Abdomen: Negative: Tender Skin: Negative: Rash Musculoskeletal: No Pain Extremities: Present: +3 Edema (BLE) - Labs and Meds Comprehensive Metabolic Panel 01/12/19 Range/Units 05:45 Sodium 141 (137-145) mmol/L Potassium 4.2 (3.6-5.0) mmol/L Chloride 100.3 (98-107) mmol/L Carbon Dioxide 25 (22-30) mmol/L BUN 14 (9-20) mg/dL Creatinine 0.9 (0.8-1.5) mg/dL Glucose 113 H (75-100) mg/dL Calcium 9.0 (8.4-10.2) mg/dL - Imaging and Cardiology EKG: report reviewed, image reviewed Echo: report reviewed (EF 10-15%, LV, LA, RV severely dilated, RV systolic function severely reduced, mild to mod MR and TR, pulm HTN with RVSP 79mmHg. )
[2019-01-12] MEDS: BUDESONIDE 0.25 MG/2 ML NEBU IH SCH (12:52)
--- NOTE | 2019-01-12 16:46 | Progress Note ---
Assessment and Plan Patient is 58-year-old with chronic systolic CHF, diabetes. He presented with chest pain and r shortness of breath on 01/06/2019. He was seen and evaluated in Emergency department and diagnosed with pneumonia and CHF exacerbation. patient was admitted evaluated by cardiology. There has not been much improvement in CHF and cardiology considering transfer to [place] Sunday if no improvement. Chest pain Stress test abnormal Patient declined cardiac cath Was to be transferred to [place] Acute on chronic systolic HF Was on Lasix iv, now switched to Bumex iv, beta livia and acei Started on Dobutamine drip Coreg Cardiology following Patient had declined life vest and declined AICD multiple times cardiology considering transfer to [place] if no improvement by 01/13/2019 Dilated cardiomyopathy Continue with diuresis beta blockers and acei Pulmonary hypertension Diuresis Pneumonia Completed Zosyn Hypotension Started on Dobutamine Diabetes mellitus type 2 Accucheck [facility] NSVT Full code status Disposition: For transfer to [place] if no further improvement in 24.48 hours Subjective Date of service: 01/12/19 Principal diagnosis: chest pain, acute on chronic systolic HF, pneumonia, T2DM Interval history: Denies any chest pain. Denies any polyuria or polydipsia. Objective - Exam Narrative Exam: Constitutional: Well-nourished well-developed. In no distress Head: Normocephalic atraumatic Eyes: Pupils are equal round and reactive to light Nose: No enlarged turbinates, no septal deviation. Mouth: Moist mucous membranes. Neck: Supple no thyromegaly. No bruit. No JVD Heart: Regular rate and rhythm, S1-S2 normal. No rubs murmurs or gallop Lungs: Clear to auscultation bilaterally. no rales or rhonchi Abdomen: Soft, nontender. Bowel sound are present. Extremities: No edema, no cyanosis, no clubbing. Neuro: Alert oriented Oriented x3. No focal sensory or motor deficit. Skin: No rashes or hyperpigmented spots Musculoskeletal system: No joint pain or swelling Hematological: No petechia or subcutanous hemorrhages. Immunological: No multiple septic spots on the skin Lymphatic: No generalized lymphadenopathy Psychiatry: Euthymic. Calm. - Constitutional Vitals: Vital Signs - 12hr 01/12/19 01/12/19 01/12/19 05:14 10:00 10:05 Temperature 98.6 F Pulse Rate 109 H 53 L 104 H Pulse Rate [ 109 H Apical] Pulse Rate [ 109 H Left Radial] Pulse Rate [ 109 H Right Radial] Respiratory 20 19 Rate Blood Pressure 104/70 86/38 O2 Sat by Pulse 95 99 92 Oximetry 01/12/19 01/12/19 01/12/19 10:06 10:07 11:35 Temperature 98.1 F Pulse Rate 110 H 110 H 107 H Pulse Rate [ Apical] Pulse Rate [ Left Radial] Pulse Rate [ Right Radial] Respiratory 18 Rate Blood Pressure 86/38 86/38 107/65 O2 Sat by Pulse 99 Oximetry 01/12/19 01/12/19 12:00 15:50 Temperature 98.2 F Pulse Rate 101 H 104 H Pulse Rate [ Apical] Pulse Rate [ Left Radial] Pulse Rate [ Right Radial] Respiratory 18 Rate Blood Pressure 104/69 O2 Sat by Pulse 98 Oximetry - Labs CBC & Chem 7: 01/10/19 07:23 01/12/19 05:45 Labs: Abnormal lab results 01/11/19 01/11/19 01/12/19 Range/Units 18:11 21:57 05:45 Glucose 113 H (75-100) mg/dL POC Glucose 153 H 145 H (70-105) 01/12/19 Range/Units 11:45 Glucose (75-100) mg/dL POC Glucose 155 H (70-105)
[2019-01-12] MEDS: BUDESONIDE 0.5 MG/2 ML NEBU IH SCH (20:21)
[2019-01-13] MEDS: ACETAMINOPHEN 325 MG TAB PO PRN (05:43)
[2019-01-13] MEDS: BUMETANIDE 2.5 MG/10 ML VIAL IV SCH ×2 (05:43→17:26)
[2019-01-13] MEDS: BUDESONIDE 0.5 MG/2 ML NEBU IH SCH ×2 (07:56→21:34)
[2019-01-13] MEDS: FENOFIBRATE 48 MG TAB PO SCH (09:15)
[2019-01-13] MEDS: ASPIRIN 325 MG TAB PO SCH (09:15)
[2019-01-13] MEDS: LORATADINE 10 MG TAB PO SCH (09:15)
[2019-01-13] MEDS: K-LYTE 25 MEQ TABLET EFF PO SCH (09:15)
[2019-01-13] MEDS: CARVEDILOL 3.125 MG TAB PO SCH ×2 (09:16→22:32)
[2019-01-13] MEDS: INSULIN REGULAR, HUMAN 100 UNITS/1 ML SUB-Q SCH ×4 (09:16→22:33)
[2019-01-13] MEDS: LISINOPRIL 5 MG TAB PO SCH (09:17)
[2019-01-13] MEDS: HEPARIN 5,000 UNIT/1 ML VIAL SUB-Q SCH ×2 (09:17→22:31)
[2019-01-13] MEDS: DOBUTamine/D5W 500 MG/250 ML 500 MG/250 ML BAG IV SCH ×2 (09:18→22:34)
--- NOTE | 2019-01-13 12:06 | Progress Note ---
Assessment and Plan Patient is 58-year-old with chronic systolic CHF, diabetes. He presented with chest pain and r shortness of breath on 01/06/2019. He was seen and evaluated in Emergency department and diagnosed with pneumonia and CHF exacerbation. patient was admitted evaluated by cardiology. There has not been much improvement in CHF and cardiology considering transfer to [place] Sunday if no improvement. Chest pain Stress test abnormal Patient declined cardiac cath Was to be transferred to [place] Acute on chronic systolic HF EF of 10-15% with reduced systolic function and dilated LV Was on Lasix iv, now switched to Bumex iv, beta livia and acei Started on Dobutamine drip Coreg Cardiology following Patient had declined life vest and declined AICD multiple times Discussed with cardiology. Pt pedal edema improving. Plan to d/c pt home if he continue to improve and refere to [place] [facility] failure [facility] on out pt Dilated cardiomyopathy Continue with diuresis beta blockers and acei Pulmonary hypertension Diuresis Pneumonia Completed Zosyn Hypotension Started on Dobutamine Diabetes mellitus type 2 Accucheck [facility] NSVT Full code status Disposition: To D/c home if he continues to improve and refer to [place] [facility] from out as pt had refused Life vest and [facility] Subjective Date of service: 01/13/19 Principal diagnosis: chest pain, acute on chronic systolic HF, pneumonia, T2DM Interval history: Denies any chest pain. Denies any polyuria or polydipsia. sitting up in chair. Still declining life vest AICD and cardiac cath Objective - Exam Narrative Exam: Constitutional: Well-nourished well-developed. In no distress Head: Normocephalic atraumatic Eyes: Pupils are equal round and reactive to light Nose: No enlarged turbinates, no septal deviation. Mouth: Moist mucous membranes. Neck: Supple no thyromegaly. No bruit. No JVD Heart: Regular rate and rhythm, S1-S2 normal. No rubs murmurs or gallop Lungs: Clear to auscultation bilaterally. no rales or rhonchi Abdomen: Soft, nontender. Bowel sound are present. Extremities: 2+ edema, no cyanosis, no clubbing. Neuro: Alert oriented Oriented x3. No focal sensory or motor deficit. Skin: No rashes or hyperpigmented spots Musculoskeletal system: No joint pain or swelling Hematological: No petechia or subcutanous hemorrhages. Immunological: No multiple septic spots on the skin Lymphatic: No generalized lymphadenopathy Psychiatry: Euthymic. Calm. - Constitutional Vitals: Vital Signs - 12hr 01/13/19 01/13/19 01/13/19 03:37 05:37 08:17 Temperature 98.2 F 97.9 F Pulse Rate 110 H 114 H 116 H Pulse Rate [ Posterior Bilateral Throughout] Respiratory 20 20 18 Rate Respiratory Rate [Posterior Bilateral Throughout] Blood Pressure 96/63 105/68 99/70 O2 Sat by Pulse 93 95 93 Oximetry 01/13/19 01/13/19 01/13/19 08:50 09:16 09:17 Temperature Pulse Rate 108 H 108 H Pulse Rate [ 102 H Posterior Bilateral Throughout] Respiratory Rate Respiratory 18 Rate [Posterior Bilateral Throughout] Blood Pressure 95/62 95/62 O2 Sat by Pulse Oximetry - Labs CBC & Chem 7: 01/10/19 07:23 01/12/19 05:45 Labs: Abnormal lab results 01/12/19 01/12/19 Range/Units 11:45 21:46 POC Glucose 155 H 150 H (70-105)
--- NOTE | 2019-01-13 14:11 | Progress Note ---
Assessment and Plan Pt appears to be clinically improving. Cont present cardiac management. PT currently declining [facility] and has chronically declined LifeVest/AICD. The patient has been seen in conjunction with Dr. Wang who agrees with the assessment and plan of care. - Patient Problems (1) Acute HFrEF (heart failure with reduced ejection fraction) Current Visit: Yes Status: Acute (2) Dilated cardiomyopathy Current Visit: Yes Status: Chronic (3) HTN (hypertension) Current Visit: Yes Status: Chronic (4) Diabetes Current Visit: Yes Status: Chronic (5) NSVT (nonsustained ventricular tachycardia) Current Visit: Yes Status: Acute (6) History of ETOH abuse Current Visit: Yes Status: Chronic (7) Abnormal stress test Current Visit: Yes Status: Acute (8) Pulmonary HTN Current Visit: Yes Status: Chronic Subjective Date of service: 01/13/19 Principal diagnosis: chest pain, acute on chronic systolic HF, pneumonia, T2DM Interval history: pt sitting up in chair, BLE edema improving, he states he is feeling better. he states his UOP is significantly increased. BPs remain low. in SR on tele with frequent NSVT overnight. dobutamine gtt infusing. Objective Last Vital Signs Temp 97.9 F 01/13/19 08:17 Pulse 108 H 01/13/19 10:00 Resp 21 01/13/19 10:00 BP 95/62 01/13/19 09:17 Pulse Ox 99 01/13/19 10:00 - Physical Examination General: No Apparent Distress HEENT: Positive: PERRL, Normocephaly, Mucus Membranes Moist Neck: Positive: neck supple, trachea midline Cardiac: Positive: Reg Rate and Rhythm, S1/S2 Lungs: Positive: Decreased Breath Sounds Neuro: Positive: Grossly Intact Abdomen: Negative: Tender Skin: Negative: Rash Musculoskeletal: No Pain Extremities: Present: +3 Edema (BLE) - Imaging and Cardiology EKG: report reviewed, image reviewed Echo: report reviewed (EF 10-15%, LV, LA, RV severely dilated, RV systolic function severely reduced, mild to mod MR and TR, pulm HTN with RVSP 79mmHg. )
[2019-01-14] MEDS: BUMETANIDE 2.5 MG/10 ML VIAL IV SCH ×2 (05:24→17:55)
[2019-01-14] MEDS: INSULIN REGULAR, HUMAN 100 UNITS/1 ML SUB-Q SCH ×3 (08:41→17:45)
[2019-01-14] MEDS: LORATADINE 10 MG TAB PO SCH (09:29)
[2019-01-14] MEDS: K-LYTE 25 MEQ TABLET EFF PO SCH (09:29)
[2019-01-14] MEDS: FENOFIBRATE 48 MG TAB PO SCH (09:30)
[2019-01-14] MEDS: CARVEDILOL 3.125 MG TAB PO SCH ×2 (09:30→21:43)
[2019-01-14] MEDS: ASPIRIN 325 MG TAB PO SCH (09:30)
[2019-01-14] MEDS: LISINOPRIL 5 MG TAB PO SCH (09:31)
[2019-01-14] MEDS: HEPARIN 5,000 UNIT/1 ML VIAL SUB-Q SCH ×2 (09:31→21:44)
[2019-01-14] MEDS: BUDESONIDE 0.5 MG/2 ML NEBU IH SCH ×2 (10:00→19:19)
--- NOTE | 2019-01-14 10:56 | Progress Note ---
Assessment and Plan Pt appears to be clinically improving. D/c dobutamine gtt and add zaroxolyn today. Likely d/c home in next 24-48Hr. Pt continues to decline [facility] and LifeVest/AICD. The patient has been seen in conjunction with Dr. Wang who agrees with the assessment and plan of care. - Patient Problems (1) Acute HFrEF (heart failure with reduced ejection fraction) Current Visit: Yes Status: Acute (2) Dilated cardiomyopathy Current Visit: Yes Status: Chronic (3) HTN (hypertension) Current Visit: Yes Status: Chronic (4) Diabetes Current Visit: Yes Status: Chronic (5) NSVT (nonsustained ventricular tachycardia) Current Visit: Yes Status: Acute (6) History of ETOH abuse Current Visit: Yes Status: Chronic (7) Abnormal stress test Current Visit: Yes Status: Acute (8) Pulmonary HTN Current Visit: Yes Status: Chronic Subjective Date of service: 01/14/19 Principal diagnosis: chest pain, acute on chronic systolic HF, pneumonia, T2DM Interval history: pt ambulating around room, BLE edema improving, he states he is feeling better. BPs remain low. in SR on tele with frequent NSVT overnight. dobutamine gtt infusing. Objective Last Vital Signs Temp 98.2 F 01/14/19 05:10 Pulse 111 H 01/14/19 09:31 Resp 18 01/14/19 05:10 BP 104/55 01/14/19 09:31 Pulse Ox 94 01/14/19 08:21 - Physical Examination General: No Apparent Distress HEENT: Positive: PERRL, Normocephaly, Mucus Membranes Moist Neck: Positive: neck supple, trachea midline Cardiac: Positive: Reg Rate and Rhythm, S1/S2 Lungs: Positive: Decreased Breath Sounds Neuro: Positive: Grossly Intact Abdomen: Negative: Tender Skin: Negative: Rash Musculoskeletal: No Pain Extremities: Present: +2 Edema (BLE) - Imaging and Cardiology EKG: report reviewed, image reviewed Echo: report reviewed (EF 10-15%, LV, LA, RV severely dilated, RV systolic function severely reduced, mild to mod MR and TR, pulm HTN with RVSP 79mmHg. ) - Telemetry EKG Rhythm: Sinus Rhythm
--- NOTE | 2019-01-14 11:21 | Progress Note ---
Assessment and Plan Assessment and plan: 58-year-old man with history of chronic systolic CHF who presented with shortness of breath and pedal edema Acute on chronic systolic CHF, EF 15% NSVT, patient refused LifeVest and ICD multiple times, continues to refuse, refuses C Discontinue dobutamine drip and Zaroxolyn today. Likely discharge home in the next 24 to 48 hours Continue diuretics, optimize cardiac meds per cardiology Pneumonia Has completed Zosyn Diabetes Consistent carbohydrate diet, sliding scale insulin, DVT prophylaxis with heparin History Interval history: Review of systems Constitutional: No fevers, no malaise, no joint pains CVS: Continues to have orthopnea and pedal edema GI: No abdominal pain, no diarrhea, no vomiting, no constipation Respiratory: No shortness of breath, no wheezing, no coughing Hospitalist Physical - Physical exam Narrative exam: General.: Appears well, no distress, nontoxic HEENT: Moist mucous membranes, extraocular muscles intact, no lymphadenopathy Neck: supple Cardiac: S1-S2 heard Lungs: Crackles Abdomen: soft , nontender, nondistended, bowel sounds positive Extremities: Bipedal edema Skin: no rash or lesions Neurologic: no gross focal deficits Psych: calm, and cooperative - Constitutional Vitals: Temp Pulse Resp BP Pulse Ox 98.2 F 111 H 18 104/55 94 01/14/19 05:10 01/14/19 09:31 01/14/19 05:10 01/14/19 09:31 01/14/19 08:21 Results - Labs CBC & Chem 7: 01/10/19 07:23 01/12/19 05:45 Labs: Laboratory Last Values WBC 9.8 K/mm3 (4.5-11.0) 01/10/19 07:23 RBC 4.70 M/mm3 (3.65-5.03) 01/10/19 07:23 Hgb 12.1 gm/dl (11.8-15.2) 01/10/19 07:23 Hct 36.5 % (35.5-45.6) 01/10/19 07:23 MCV 78 fl (84-94) L 01/10/19 07:23 MCH 26 pg (28-32) L 01/10/19 07:23 MCHC 33 % (32-34) 01/10/19 07:23 RDW 16.0 % (13.2-15.2) H 01/10/19 07:23 Plt Count 401 K/mm3 (140-440) 01/10/19 07:23 Lymph % (Auto) 8.1 % (13.4-35.0) L 01/05/19 23:32 [place] % (Auto) 13.0 % (0.0-7.3) H 01/05/19 23:32 Eos % (Auto) 0.1 % (0.0-4.3) 01/05/19 23:32 Baso % (Auto) 0.6 % (0.0-1.8) 01/05/19 23:32 Lymph # 1.1 K/mm3 (1.2-5.4) L 01/05/19 23:32 [place] # 1.7 K/mm3 (0.0-0.8) H 01/05/19 23:32 Eos # 0.0 K/mm3 (0.0-0.4) 01/05/19 23:32 Baso # 0.1 K/mm3 (0.0-0.1) 01/05/19 23:32 Seg Neutrophils % 78.2 % (40.0-70.0) H 01/05/19 23:32 Seg Neutrophils # 10.4 K/mm3 (1.8-7.7) H 01/05/19 23:32 D-Dimer 947.79 ng/mlDDU (0-234) H 01/05/19 23:32 Sodium 141 mmol/L (137-145) 01/12/19 05:45 Potassium 4.2 mmol/L (3.6-5.0) 01/12/19 05:45 Chloride 100.3 mmol/L (98-107) 01/12/19 05:45 Carbon Dioxide 25 mmol/L (22-30) 01/12/19 05:45 Anion Gap 20 mmol/L 01/12/19 05:45 BUN 14 mg/dL (9-20) 01/12/19 05:45 Creatinine 0.9 mg/dL (0.8-1.5) 01/12/19 05:45 Estimated GFR > 60 ml/min 01/12/19 05:45 BUN/Creatinine Ratio 16 % 01/12/19 05:45 Glucose 113 mg/dL (75-100) H 01/12/19 05:45 POC Glucose 100 (70-105) 01/14/19 08:26 Calcium 9.0 mg/dL (8.4-10.2) 01/12/19 05:45 Magnesium 2.30 mg/dL (1.7-2.3) 01/09/19 04:54 Total Creatine Kinase 239 units/L (55-170) H 01/06/19 15:37 CK-MB (CK-2) 1.0 ng/mL (0.0-4.0) 01/06/19 15:37 CK-MB (CK-2) Rel Index 0.4 (0-4) 01/06/19 15:37 Troponin T 0.015 ng/mL (0.00-0.029) 01/06/19 15:37 NT-Pro-B Natriuret Pep 6595 pg/mL (0-900) H 01/05/19 23:32 Active Medications - Current Medications Current Medications: Generic Name Dose Route Start Last Admin Trade Name Freq PRN Reason Stop Dose Admin Acetaminophen 650 mg 01/06/19 02:56 01/13/19 05:43 Tylenol PO 650 mg Q4H PRN Administration Fever >101 Aspirin 81 mg 01/15/19 10:00 Baby Aspirin PO QDAY [facility] Budesonide 0.5 mg 01/12/19 20:00 01/14/19 10:00 Pulmicort IH Not Given Q12HRT [facility] Bumetanide 1 mg 01/10/19 18:00 01/14/19 05:24 Bumex IV 1 mg BID@0600,1800 SHERITA Administration Carvedilol 3.125 mg 01/08/19 11:00 01/14/19 09:30 Coreg PO Not Given BID SHERITA Dextrose 0 ml 01/06/19 03:08 D50w (25gm) Syringe IV Q30MIN PRN Hypoglycemia Fenofibrate 48 mg 01/06/19 10:00 01/14/19 09:30 Tricor PO 48 mg DAILY SHERITA Administration Heparin Sodium (Porcine) 5,000 unit 01/06/19 03:00 01/14/19 09:31 Heparin SUB-Q 5,000 unit Q12HR SHERITA Administration Insulin Human Regular 0 units 01/07/19 22:00 01/14/19 08:41 Humulin R SUB-Q Not Given ACHS SHERITA Protocol Levalbuterol HCl 0.63 mg 01/06/19 03:06 01/07/19 09:14 Xopenex IH 0.63 mg Q6HRT PRN Administration Shortness Of Breath Lisinopril 2.5 mg 01/06/19 10:00 01/14/19 09:31 Zestril PO Not Given DAILY SHERITA Loratadine 10 mg 01/06/19 10:00 01/14/19 09:29 Claritin PO 10 mg DAILY SHERITA Administration Metolazone 2.5 mg 01/14/19 17:30 Zaroxolyn PO QDAY SHERITA Morphine Sulfate 2 mg 01/06/19 03:00 Morphine IV Q3H PRN Pain, Moderate (4-6) Ondansetron HCl 4 mg 01/06/19 02:57 Zofran IV Q8H PRN Nausea And Vomiting Polyethylene Glycol 17 gm 01/10/19 15:36 01/10/19 16:24 Miralax 3350 PO 17 gm BID PRN Administration Constipation Potassium Bicarbonate 25 meq 01/08/19 12:00 01/14/19 09:29 Klor-Con PO 25 meq QDAY SHERITA Administration Nutrition/Malnutrition Assess - Dietary Evaluation Nutrition/Malnutrition Findings: Nutrition Notes Start: 01/13/19 13:57 Freq: Status: Active Protocol: Document 01/13/19 13:57 OH (Rec: 01/13/19 14:07 OH [id number]) Nutrition Notes Need for Assessment generated from: LOS Initial or Follow up Assessment Current Diagnosis Diabetes,Hypertension,Heart Failure Other Pertinent Diagnosis pneumonia Current Diet cardiac Labs/Tests Reviewed Pertinent Medications Heparin Humulin Height 6 ft 9 in Weight 131.3 kg [place] Body Weight (kg) 105.45 BMI 31.0 Intake Prior to Admission Good Weight Status Overweight Subjective/Other Information LOS referral; Pt. indicates he took a pill at home to assist in managing his DM. Pt. doesn 't have a PCP. Pt. reports he recently has increased his consumption of fruits/ vegetables. Pt. aware of health outcomes if diabetes uncontrolled. Per pt he has not undergone DM education. Pt . report of having commercial insurance. Percent of energy/protein needs met: 100/100 Burn Absent Trauma Absent GI Symptoms None Current % PO Good (75-100%) Minimum of two criteria No physical signs of malnutrition #1 Nutrition Diagnosis Food and nutrition-related knowledge deficit Etiology no prior/inadequate DM related education As Evidenced by Signs and Symptoms Question related to CHO sources/DM managment Diagnosis Progress(for reassessment Continues documentation) Is patient on ventilator? No Is Patient Ambulatory and/or Out of Bed Yes REE-(Mcnairy-St. Jeor-ambulatory/OOB) [ 3001.544 NUTR.MSJOOB] Kcal/Kg value to use for calculation 22 Approximate Energy Requirements Using 2889 kcal/Kg Calculation Used for Recommendations Kcal/kg Additional Notes PRO: 1-1.2 g/kg/IBW 105-126 G /DAY FLUID: 1 ml/kcal Nutrition Intervention Change Diet Order: Consistent CHO Teaching Recipient Patient Learning Readiness Good Teaching Methods Discussion,Demonstration, Handout Response to Teaching Demonstrates with assistance, Verbalize understanding, Reinforcement needed Education Handouts Provided Bull Driver provided pt w/handout describing CHO choices. Provided education regarding CHO/PRO/FAT combinations and importance of managing DM for positive detention health outcomes. Suggested pt attend DM education class through service liaison representative/[facility] to have a greater understanding regarding his health. Enc pt to limit simple CHO sources and reviewed those w/pt. Enc adherence to attending appointments and checking bloodsugar leves as recommended. Pt. verbalized understanding and appears interested in adjusting lifestyle. Rec pt f/u w/PCP and establish an service liaison representative. Barriers to Learning Motivation,Environmental Follow-Up By: 01/15/19 Additional Comments Monitor for questions related to DM
[2019-01-14] MEDS: metOLazone 2.5 MG TAB PO SCH (17:55)
[2019-01-15] MEDS: INSULIN REGULAR, HUMAN 100 UNITS/1 ML SUB-Q SCH ×2 (06:48→07:40)
[2019-01-15] MEDS: BUMETANIDE 2.5 MG/10 ML VIAL IV SCH (06:48)
[2019-01-15 07:49] VITALS: BP 90/49
[2019-01-15] MEDS: LISINOPRIL 5 MG TAB PO SCH (09:40)
[2019-01-15] MEDS: LORATADINE 10 MG TAB PO SCH (09:41)
[2019-01-15] MEDS: CARVEDILOL 3.125 MG TAB PO SCH (09:41)
[2019-01-15] MEDS: K-LYTE 25 MEQ TABLET EFF PO SCH (09:41)
[2019-01-15] MEDS: FENOFIBRATE 48 MG TAB PO SCH (09:42)
[2019-01-15] MEDS: HEPARIN 5,000 UNIT/1 ML VIAL SUB-Q SCH (09:42)
[2019-01-15] MEDS: metOLazone 2.5 MG TAB PO SCH ×2 (09:42→09:53)
[2019-01-15] MEDS ORDERED: ASPIRIN 81 MG TAB CHEW PO SCH (10:00)
--- NOTE | 2019-01-15 10:53 | Discharge Summary ---
Providers - Providers Date of Admission: 01/06/19 03:50 Attending physician: YOEL HEARD MD 01/06/19 06:00 Consult to Physician [CONS] Routine Comment: Consulting Provider: ASIA TOMAS Physician Instructions: Reason For Exam: CHF EXACERBATION WITH CHEST PAIN Primary care physician: STAFF ANESTHETIST Hospitalization Condition: Stable Hospital course: 58-year-old man with history of chronic systolic CHF who presented with shortness of breath and pedal edema Acute on chronic systolic CHF, EF 15% NSVT, patient refused LifeVest and ICD multiple times, continues to refuse, refuses LHC Received dobutamine drip and Zaroxolyn patient improved and was discharged on oral diuretics, outpatient follow-up at [place] [facility] Pneumonia Has completed a short course of Zosyn Diabetes Consistent carbohydrate diet, sliding scale insulin, DVT prophylaxis with heparin Disposition: TO HOME OR SELFCARE Time spent for discharge: 33 mins Core Measure Documentation - Palliative Care Palliative Care/ Comfort Measures: Not Applicable - Core Measures Any of the following diagnoses?: heart failure - Heart Failure Discharge Requirements ADINA/ARB for LVSD if EF <40%: Yes Beta livia at discharge: Yes Exam - Constitutional Vitals: Temp Pulse Resp BP Pulse Ox 98.5 F 111 H 20 90/49 97 01/15/19 06:45 01/15/19 06:45 01/15/19 06:45 01/15/19 06:45 01/15/19 06:45 General appearance: Present: no acute distress, well-nourished - EENT Eyes: Present: PERRL ENT: hearing intact, clear oral mucosa - Neck Neck: Present: supple, normal ROM - Respiratory Respiratory effort: normal Respiratory: bilateral: rales (bases) - Cardiovascular Heart Sounds: Present: S1 & S2. Absent: rub, click - Extremities Extremities: pulses symmetrical Extremity abnormal: edema (1 plus in LE) Peripheral Pulses: within normal limits - Abdominal General gastrointestinal: Present: soft, non-tender, non-distended, normal bowel sounds Male genitourinary: Present: normal - Integumentary Integumentary: Present: clear, warm, dry - Musculoskeletal Musculoskeletal: gait normal, strength equal bilaterally - Psychiatric Psychiatric: appropriate mood/affect, intact judgment & insight - Neurologic Neurologic: CNII-XII intact, moves all extremities Plan Follow up with: WERNER FELTON MD [Staff Physician] - 7 Days (Follow up in our [place] office with Dr. Reeder on 01/21/2019 @ 11:15AM. ) PRIMARY CARE, [Primary Care Provider] - 7 Days Prescriptions: Bumetanide [Bumex 1 mg tab] 1 mg PO BID #60 tab
--- NOTE | 2019-01-15 11:13 | Progress Note ---
Assessment and Plan Currently stable cardiac status. Pt nearing euvolemia. Pt may discharge home from cardiology standpoint. At discharge, recommend PO bumex 1mg BID. Cont low dose coreg and lisinopril with hold parameters (hold for SBP <100mmHg and/or HR <60bpm). Pt continues to decline LHC and LifeVest/AICD. Follow up in our [place] office with Dr. Reeder on 01/21/2019 @ 11:15AM. The patient has been seen in conjunction with Dr. Wang who agrees with the assessment and plan of care. - Patient Problems (1) Acute HFrEF (heart failure with reduced ejection fraction) Current Visit: Yes Status: Acute (2) Dilated cardiomyopathy Current Visit: Yes Status: Chronic (3) HTN (hypertension) Current Visit: Yes Status: Chronic (4) Diabetes Current Visit: Yes Status: Chronic (5) NSVT (nonsustained ventricular tachycardia) Current Visit: Yes Status: Acute (6) History of ETOH abuse Current Visit: Yes Status: Chronic (7) Abnormal stress test Current Visit: Yes Status: Acute (8) Pulmonary HTN Current Visit: Yes Status: Chronic Subjective Date of service: 01/15/19 Principal diagnosis: chest pain, acute on chronic systolic HF, pneumonia, T2DM Interval history: pt ambulating around room, BLE edema nearly resolved, he states he is feeling well. BPs remain low. in SR on tele with frequent NSVT overnight. Objective Last Vital Signs Temp 98.5 F 01/15/19 06:45 Pulse 111 H 01/15/19 06:45 Resp 20 01/15/19 06:45 BP 90/49 01/15/19 06:45 Pulse Ox 97 01/15/19 06:45 - Physical Examination General: No Apparent Distress HEENT: Positive: PERRL, Normocephaly, Mucus Membranes Moist Neck: Positive: neck supple, trachea midline Cardiac: Positive: Reg Rate and Rhythm, S1/S2 Lungs: Positive: Decreased Breath Sounds Neuro: Positive: Grossly Intact Abdomen: Negative: Tender Skin: Negative: Rash Musculoskeletal: No Pain Extremities: Present: edema (trace BLE) - Imaging and Cardiology EKG: report reviewed, image reviewed Echo: report reviewed (EF 10-15%, LV, LA, RV severely dilated, RV systolic function severely reduced, mild to mod MR and TR, pulm HTN with RVSP 79mmHg. ) - Telemetry EKG Rhythm: Sinus Rhythm
[2019-01-15] MEDS: BUDESONIDE 0.5 MG/2 ML NEBU IH SCH (11:53)
== END 2019-01-15 11:12 | disposition home or self-care (01) | DRG 291 ==
LOC: ED 22:38 → 4A 01-06 03:50
PROVIDERS: ADMIT Internal Medicine; ATTEND Internal Medicine
DX: I11.0 Hypertensive heart disease with heart failure (principal); J18.9 Pneumonia, unspecified organism; R65.10 Systemic inflammatory response syndrome (SIRS) of non-infectious origin without acute organ dysfunction; I47.1 Supraventricular tachycardia; I50.23 Acute on chronic systolic (congestive) heart failure; I42.0 Dilated cardiomyopathy; I25.9 Chronic ischemic heart disease, unspecified; E11.9 Type 2 diabetes mellitus without complications; I27.20 Pulmonary hypertension, unspecified; D72.829 Elevated white blood cell count, unspecified; Z71.89 Other specified counseling; Z87.891 Personal history of nicotine dependence
CPT/HCPCS: 36415; 71045; 78452; 80048; 82550; 82553; 82962; 83735; 83880; 84484; 85025; 85027; 85379; 87040; 87116; 93005; 93010; 93017; 93306; 94640; 96365; 96366; 96375; G0378; A9502; J1250; J1644; J1815; J1940; J2060; J2270; J2405; J2543; J2785; J7040

== ENCOUNTER 2019-12-15 15:29 | Emergency (ER) | payer BC ==
[2019-12-15 19:13] LABS: Calcium 10.6 mg/dL (8.4-10.2)
[2019-12-15] MEDS ORDERED: INSULIN REGULAR, HUMAN 100 UNIT/ML 3ML VIAL SUB-Q ONE (20:22)
--- NOTE | 2019-12-15 20:23 | Emergency Department Report ---
ED General Adult HPI - General Chief complaint: Hyperglycemia Stated complaint: SUGAR 445 PUI?: No Time Seen by Provider: 12/15/19 20:11 Source: patient, RN notes reviewed, old records reviewed Mode of arrival: Ambulatory Limitations: No Limitations - History of Present Illness Initial comments: The patient was evaluated in the emergency department for symptoms described in the history of present illness. He/she was evaluated in the context of the global COVID-19 pandemic, which necessitated consideration that the patient m ight be at risk for infection with the virus that causes COVID-19. Institutional protocols and algorithms that pertain to the evaluation of patients at risk for COVID-19 are in a state of rapid change based on information released by regulatory bodies including the CDC and federal and state organizations. These policies and algorithms were followed during the patient's care in the emergency department. Please note that these policies, procedures and recommendations changed on a rapid basis. Patient is a pleasant and cooperative 59-year-old gentleman. Patient has a history of diabetes, and reports compliance with his diabetic medications. He also has a history of congestive heart failure, currently on milrinone drip, and reports prophylactic ICD placement. He is sent to the emergency room by his outpatient cardiology practice for asymptomatic hyperglycemia. Patient denies dietary indiscretions. He endorses compliance with his medications. He is taking Bumex, 4 g, twice daily. He denies headache, neck pain, chest pain, new or different shortness of breath, abdominal pain, dysuria, he does admit to painless intermittent urinary frequency, he denies loss of taste, loss of smell, and he is asking to be discharged "so I can watch the game." -: Gradual Consistency: constant Improves with: none Worsens with: none Associated Symptoms: denies other symptoms - Related Data Home Medications Medication Instructions Recorded Confirmed Last Taken Fenofibrate Nanocrystallized 48 mg PO DAILY 01/06/19 01/06/19 Unknown [Fenofibrate] Fluticasone Propionate [Flovent 50 mcg IH DAILY 01/06/19 01/06/19 Unknown Diskus] Lisinopril [Zestril TAB] 2.5 mg PO DAILY 01/06/19 01/06/19 Unknown Loratadine 10 mg PO DAILY 01/06/19 01/06/19 Unknown Metformin HCl [metFORMIN ER 1 tab PO BID 01/06/19 01/06/19 Unknown Osmotic] Potassium Bicarb/Citrate [Klor-Con 20 meq PO QDAY 01/06/19 01/06/19 Unknown Eff] carvediloL [Coreg] 12.5 mg PO DAILY 01/06/19 01/06/19 Unknown Previous Rx's Medication Instructions Recorded Last Taken Type Bumetanide [Bumex 1 mg tab] 1 mg PO BID #60 tab 01/15/19 Unknown Rx Allergies Allergy/AdvReac Type Severity Reaction Status Date / Time No Known Allergies Allergy Unverified 01/05/19 23:11 ED Review of Systems ROS: Stated complaint: SUGAR 445 Other details as noted in HPI Comment: All other systems reviewed and negative Constitutional: denies: fever Eyes: denies: eye discharge ENT: denies: epistaxis Respiratory: shortness of breath (Chronic shortness of breath). denies: cough Cardiovascular: denies: chest pain Gastrointestinal: denies: abdominal pain Genitourinary: frequency. denies: dysuria Musculoskeletal: denies: back pain Neurological: denies: weakness ED Past Medical Hx - Past Medical History Previous Medical History?: Yes Hx Hypertension: Yes Hx Heart Attack/AMI: No Hx Congestive Heart Failure: Yes Hx Diabetes: Yes Hx Deep Vein Thrombosis: No Hx Liver Disease: No Hx Asthma: No Hx COPD: No - Surgical History Hx Coronary Stent: No Hx Pacemaker: No Hx Internal Defibrillator: No - Social History Smoking Status: Never Smoker - Medications Home Medications: Home Medications Medication Instructions Recorded Confirmed Last Taken Type Fenofibrate Nanocrystallized 48 mg PO DAILY 01/06/19 01/06/19 Unknown History [Fenofibrate] Fluticasone Propionate [Flovent 50 mcg IH DAILY 01/06/19 01/06/19 Unknown History Diskus] Lisinopril [Zestril TAB] 2.5 mg PO DAILY 01/06/19 01/06/19 Unknown History Loratadine 10 mg PO DAILY 01/06/19 01/06/19 Unknown History Metformin HCl [metFORMIN ER 1 tab PO BID 01/06/19 01/06/19 Unknown History Osmotic] Potassium Bicarb/Citrate [Klor-Con 20 meq PO QDAY 01/06/19 01/06/19 Unknown H istory Eff] carvediloL [Coreg] 12.5 mg PO DAILY 10/21/19 10/21/19 Unknown History Bumetanide [Bumex 1 mg tab] 1 mg PO BID #60 tab 01/15/19 Unknown Rx ED Physical Exam - General Limitations: No Limitations General appearance: alert, in no apparent distress - Head Head exam: Present: atraumatic, normocephalic - Eye Eye exam: Present: normal appearance, EOMI. Absent: nystagmus - ENT ENT exam: Present: normal exam, normal orophraynx, mucous membranes moist, normal external ear exam - Neck Neck exam: Present: normal inspection, full ROM. Absent: tenderness, meningismus - Respiratory Respiratory exam: Present: normal lung sounds bilaterally. Absent: respiratory distress, wheezes, rales, rhonchi, stridor, decreased breath sounds - Cardiovascular Cardiovascular Exam: Present: regular rate, normal rhythm, normal heart sounds. Absent: bradycardia, tachycardia, irregular rhythm, systolic murmur, diastolic murmur, rubs, gallop - GI/Abdominal GI/Abdominal exam: Present: soft. Absent: distended, tenderness, guarding, rebound, rigid, pulsatile mass - Rectal Rectal exam: Present: deferred - Extremities Exam Extremities exam: Present: normal inspection, full ROM, other (2+ pulses noted in the bilateral upper and lower extremities. There is no palpable cord. negative Homans sign. Muscular compartments are soft. The pelvis is stable.). Absent: pedal edema, calf tenderness - Back Exam Back exam: Present: normal inspection, full ROM. Absent: tenderness, CVA tenderness (R), CVA tenderness (L), paraspinal tenderness, vertebral tenderness - Neurological Exam Neurological exam: Present: alert, oriented X3, other (No facial droop. Tongue midline. Extraocular movements intact bilaterally. Facial sensation intact to light touch in V1, V2, V3 distribution bilaterally. 5 and a 5 strength in 4 extremities. Sensation intact to light touch in 4 extremities.). Absent: motor sensory deficit - Psychiatric Psychiatric exam: Present: normal affect, normal mood - Skin Skin exam: Present: warm, dry, intact, normal color. Absent: rash ED Course Vital Signs 12/15/19 20:19 Temperature 98.4 F Respiratory 18 Rate Blood Pressure 112/63 [Left] O2 Sat by Pulse 97 Oximetry - Reevaluation(s) Reevaluation #1: 12/15/19 22:08 Patient observed for hours without clinical decompensation. His repeat Accu- Chek was still elevated. Additional therapy is recommended, but the patient eloped. ED Medical Decision Making - Lab Data Result diagrams: 12/15/19 18:46 Vital Signs 12/15/19 20:19 Temperature 98.4 F Respiratory 18 Rate Blood Pressure 112/63 [Left] O2 Sat by Pulse 97 Oximetry Lab Results 12/15/19 12/15/19 Range/Units 15:55 18:46 Sodium 128 L (137-145) mmol/L Potassium 4.8 (3.6-5.0) mmol/L Chloride 86.0 L (98-107) mmol/L Carbon Dioxide 24 (22-30) mmol/L Anion Gap 23 mmol/L BUN 37 H (9-20) mg/dL Creatinine 1.9 H (0.8-1.3) mg/dL Estimated GFR 44 ml/min BUN/Creatinine Ratio 19 % Glucose 473 H (75-100) mg/dL POC Glucose 425 H (70-105) Calcium 10.6 H (8.4-10.2) mg/dL - Medical Decision Making Differential diagnosis, include but not limited to: Hyperglycemia, dehydration Assessment and plan: 59-year-old gentleman with essentially asymptomatic hyperglycemia. He is afebrile with reassuring vital signs. He is found to have evidence of dehydration, asymptomatic mild renal insufficiency, and minimal anion gap and hyperglycemia. The patient has endorsed a strong desire to be discharged. I have contacted covering cardiology on-call, and discussed the patient's clinical presentation with the covering cardiology, Dr. Troy Tomas Patient will be given insulin here in the emergency room, he will be advised to hold Bumex for the next 24 hours, cardiology advises that they would like to see him in the office in 2 days, this Sunday, where they will repeat laboratory studies, and reassess the patient. Patient states he is reliable to follow-up, and through shared decision-making, given close follow-up, benign physical appearance, desire to be discharged, I think this plan of care is reasonable. Critical care attestation.: If time is entered above; I have spent that time in minutes in the direct care of this critically ill patient, excluding procedure time. ED Disposition Clinical Impression: Hyperglycemia, Renal insufficiency Disposition: ELOPED Is pt being admited?: No Does the pt Need Aspirin: No Condition: Undetermined Additional Instructions: Avoid consumption of Motrin, ibuprofen, Naprosyn, Aleve. Continue salt restriction, and water restriction as recommended by your outpatient carbide powder processor. Patient may continue outpatient medications, with the exception of Bumex. Hold Bumex for the next 24 hours. I have contacted your covering carbide powder processor on- call, Dr. Tomas, and the [facility] cardiology group would like to have the patient follow-up this Sunday for repeat checkup/evaluation. They have advised that they will perform laboratory studies in the office to reassess the patient's status. Please contact [facility] heart cardiology first thing in the morning, inform the front office staff that we have spoken to covering carbide powder processor, and they would like you to follow-up on Sunday for repeat checkup/evaluation. Please return to the emergency room right away with new pain, worsening pain, migration of pain, projectile vomiting, change in mental status, confusion, inability to tolerate liquid feeds, new, worsened or different symptoms not present on the initial emergency room evaluation Referrals: JONG TOMAS MD [Staff Physician] - 12/17/19
[2019-12-15 20:26] VITALS: BP 112/63
[2019-12-15] MEDS ORDERED: INSULIN REGULAR, HUMAN 100 UNITS/1 ML ONE (21:00)
== END 2019-12-15 22:13 | disposition left against medical advice (07) ==
LOC: ED 15:29
DX: E11.65 Type 2 diabetes mellitus with hyperglycemia (principal); I11.0 Hypertensive heart disease with heart failure; I50.9 Heart failure, unspecified; N28.9 Disorder of kidney and ureter, unspecified; Z79.899 Other long term (current) drug therapy
CPT/HCPCS: 36415; 80048; 82962; 96372; 99283; J1815